=== PATIENT | female | born 2000 | race Caucasian/White ===

== ENCOUNTER 2020-05-05 12:37 | Emergency (ER) | payer OTHER, SELFPAY ==
[2020-05-05 12:56] VITALS: BP 108/72; PULSE 106; RESP 14; TEMP 37.1; O2SAT 99
--- NOTE | 2020-05-05 13:02 | ED.URI ---
HPI - URI/Sore Throat General Chief Complaint: Upper Respiratory Infection Stated Complaint: sore throat swollen neck Time Seen by Provider: 05/05/20 13:02 Source: patient and RN notes reviewed Mode of arrival: ambulatory Limitations: no limitations History of Present Illness HPI Narrative: 19-year-old female who presents to [facility] with 3-day history of sore throat, and right ear discomfort. Patient states that she has some nasal drainage and stuffiness, denies any known fever, chills or sweats. Patient is not having any cough or any shortness of breath, SAO2 99% on room air. Patient was treated for ear infection previously on April 09, 2020. MD elicited complaint: sore throat and other (ear pain) Pertinent past history: other (ear infection) Onset (ago): day(s) (3) Associated symptoms: rhinorrhea, nasal congestion, sore throat, ear pain (Right) and other Treatments prior to arrival: antibiotics (2 doses of old antibiotic) Related Data Home Medications Medication Instructions Recorded Confirmed No Home Medications 05/05/20 05/05/20 Allergies Allergy/AdvReac Type Severity Reaction Status Date / Time No Known Allergies Allergy Verified 05/05/20 13:07 Review of Systems Review of Systems: Narrative: CONSTITUTIONAL: Denies fever, chills, or sweats. EYES: Denies visual changes, redness, or discharge. ENT: Positive rhinorrhea, congestion, sore throat, right otalgia. CARDIOVASCULAR: Denies chest pain, palpitations, or edema. RESPIRATORY: Denies cough or dyspnea. GASTROINTESTINAL: Denies abdominal pain, nausea, vomiting, or diarrhea. GENITOURINARY: Denies dysuria or hematuria. SKIN: Denies rash or itching. MUSCULOSKELETAL: Denies back pain, joint pain, or myalgia. NEUROLOGIC: Denies headache, numbness, or weakness. PSYCHIATRIC: Denies anxiety or depression. All systems reviewed & are unremarkable except as noted in HPI and below PMFSH Past Medical History Medical History (Updated 05/05/20 @ 13:32 by Jeanine Gautam NP) Acute streptococcal pharyngitis Ear infection Surgical History Surgical History (Updated 05/05/20 @ 13:33 by Jeanine Gautam NP) History of tonsillectomy and adenoidectomy Family History Family History (Updated 05/05/20 @ 18:14 by Jeanine Gautam NP) Other No significant family history Social History Social History (Updated 05/05/20 @ 13:33 by Jeanine Gautma NP) Smoking status: Current every day smoker Alcohol intake: current Substance use: never Living arrangements: with family Gender identity (if verbalized by the patient): Female Comments At time of signature, agree with nursing past medical, surgical, social and family history. There is no relevant family history pertinent to the presenting complaint Exam Narrative: Exam Narrative: GENERAL: Well-appearing, well-nourished, and in no acute distress. HEAD: Normocephalic, atraumatic. EYES: PERRLA and EOMI. ENT: Nares red with clear rhinorrhea no epistaxis. Mucous membranes moist.TM's normal with normal light reflex, right ear has some scarring noted on ear drum, no drainage noted, throat red with no lesions or exudates post nasal drainage noted, previous T&A. NECK: Supple.no lymphadenopathy CHEST: Clear to auscultation. No respiratory distress.SAO2 99% on room air. HEART: Regular rate and rhythm. No murmur heard. Normal peripheral pulses. ABDOMEN: Soft, nontender, nondistended, normal active bowel sounds. EXTREMITIES: Normal range of motion. No edema. SKIN: Warm, dry, no rash. NEURO: No focal deficits. Alert and oriented x3. Course Vital Signs Vital signs: Vital Signs Temperature 37.1 C 05/05/20 12:56 Pulse Rate 106 H 05/05/20 12:56 Respiratory Rate 14 05/05/20 12:56 Blood Pressure 108/72 05/05/20 12:56 Pulse Oximetry 99 05/05/20 12:56 Temperature 37.1 C 05/05/20 12:56 Pulse Rate 106 H 05/05/20 12:56 Respiratory Rate 14 05/05/20 12:56 Blood Pressure 108/72
== END 2020-05-05 13:29 | disposition home or self-care (01) ==
PROVIDERS: Emergency Provider Registered Nurse; PCP Physician Assistant
DX: J06.9 Acute upper respiratory infection, unspecified (principal); F17.200 Nicotine dependence, unspecified, uncomplicated
CPT/HCPCS: 87081; 87880; 99213; G0463

== ENCOUNTER 2024-04-25 11:13 | Outpatient (CLI) | payer OTHER, SELFPAY ==
--- NOTE | ~2024-04-25 | NM_ITS ---
EXAMINATION: NM hepatobiliary wo pharm DATE: 04/25/2024 15:06 INDICATION: Right upper quadrant abdominal pain. Weight loss. COMPARISON: None. TECHNIQUE: 5.087 mCi Tc-99m mebrofenin (Choletec) was administered intravenously. Scintigraphic imag es of the abdomen were obtained for one hour. Delayed images were obtained at 4 hours. FINDINGS: There is normal clearance of radiotracer from the blood pool. There is homogeneous tracer u ptake by the liver. Activity progresses to the bowel. There is no activity in the gallbladder at 4 h ours. IMPRESSION: 1. Lack of activity in the gallbladder, consistent with acute cholecystitis. Reviewed, dictated and finalized at location A. [employer]
[2024-04-30 15:32] LABS: Calprotectin, Stool 10 mcg/g
== END 2024-04-25 11:14 | disposition home or self-care (01) ==
LOC: ANHIMG 11:14
PROVIDERS: PCP Physician Assistant; Visit Provider Nurse Practitioner Family
DX: R19.7 Diarrhea, unspecified (principal); R63.4 Abnormal weight loss
CPT/HCPCS: 78226; 82653; 83993; A9537

== ENCOUNTER 2024-05-16 08:56 | Outpatient (CLI) | payer OTHER, SELFPAY ==
--- NOTE | ~2024-05-16 | US_ITS ---
EXAMINATION: US abdomen limited DATE: 05/16/2024 09:51 INDICATION: Right upper quadrant abdominal pain. Nausea. Vomiting. TECHNIQUE: Multiple grayscale and Doppler ultrasound images of the abdomen were obtained. COMPARISON: None FINDINGS: The visualized portions of the head, body, and tail of the pancreas are normal. The liver i s normal without focal lesion. There is normal flow in main portal vein. The gallbladder is normal in size and contains gallstones. No gallbladder wall thickening or sonographic Stevenson sign. The common duct is normal and measures 4 mm. IMPRESSION: 1. Cholelithiasis. No evidence of acute cholecystitis. Reviewed, dictated and finalized at location A. ICAL TECHNOLOGIST
--- OUTSIDE RECORDS SUMMARY | 2024-05-16 09:26 | XMS_ITS | Data Portability ---
Author Organization KATY Sanchez GARCIA Address [address] [facility] [place] [address] Care Team Providers Care Bottom Sander Name Role Phone JARROD BUNN Primary Care Provider [phone] JAKE HENRIQUEZ Assistant Professor Of Anthropology Unavailable Assessment No assessment recorded. Plan of Treatment Reminders Order Date Submit Date Provider Last Modified By Organization Details Last Modified Time Details Appointments None recorded. Lab CBC 2023 [facility], [address] [place] [address], [facility] [address], [place], [address], 4 06:18:36 CMP, serum or plasma 2023 [facility], [address] [place] [address], [facility] [address], [place], [address], 4 06:18:34 lipid panel, serum 2023 [facility], [address] [place] [address], [address], [place], [address], 4 06:18:32 TSH + free T4, serum 2023 [facility], [address] [place] [address], [address], [place], [address], 4 13:13:58 HbA1c (hemoglobi n A1c), blood 2023 [facility] In-Office Order, Internal Use Only DO Not Attach Compendium DO Not Attach Compendium, Do Not Delete/merge, [id number] 4 11:54:06 Referral gastroente rologist referral 2020 [email or web address] Not available 13:49:57 gastroente rologist referral 2023 024 [facility], [address], [address], [place], [address], 18:17:32 Procedures None recorded. Surgeries None recorded. Imaging None recorded. Medication Orders tramadol 50 mg tablet 2019 020 [facility], [address] [place] [address], [address], 4 14:44:48 amoxicilli n 875 mg tablet 2019 020 [facility], [address] [place] [address], [address], 4 14:45:09 Lomotil 2.5 mg-0.025 mg tablet 2023 024 [facility], [address] [place], [address], 4 11:34:23 escitalopr am 10 mg tablet 2023 024 [facility], [address] [place], [address], 4 11:34:19 Patient TargetsNo targets recorded. Patient Instructions Encounter Date Encounter Id Patient Instructions Last Modified By Organization Details Last Modified Time 03/18/2021 [id number] body mass index: care instructions [email or web address] Not available 03/18/2021 16:07:08 learning about healthy weight jnanney Not available 03/18/2021 16:07:07 10/27/2023 [id number] A healthy lifestyle: care instructions [email or web address] Not available 10/27/2023 15:00:25 03/12/2024 [id number] A healthy lifestyle: care instructions [email or web address] Not available 03/12/2024 11:37:31 Reason for Referral Cosmetician Referral for Cholelithiasis without obstruction Referring Physician: Jarrod Bunn [facility], Encounter Date: 03/18/2021 Cosmetician Referral for Chronic diarrhea Referring Physician: Jarrod Bunn [facility], Encounter Date: 03/12/2024 Results Created Date Observation Date Name Description Value Unit Range Abnormal Flag Note LastModifiedBy Organization Detail LastModifiedTime 03/12/2003/13/2024 LIPID PANEL cholesterol, total 158 mg/dL 100-19 9 Not Available [address], [address], 03/13/2024 06:18:32 03/12/2003/13/2024 LIPID PANEL triglyceride s 95 mg/dL 0-149 Not Available [address], [address], 03/13/2024 06:18:32 03/12/2003/13/2024 LIPID PANEL HDL cholesterol 33 mg/dL 40-999 below low normal Not Available [address], [address], 03/13/2024 06:18:32 03/12/2003/13/2024 LIPID PANEL VLDL cholesterol sri 19 mg/dL 5-40 Not Available [address], [address], 03/13/2024 06:18:32 03/12/2003/13/2024 LIPID PANEL LDL chol calc ([facility]) 119 mg/dL 0-99 above high normal Not Available [address], [address], 03/13/2024 06:18:32 03/12/202024 COMP. METAB OLIC PANEL (14) glucose 76 mg/dL 70-99 Not Available [facility] & [address], [address], 03/13/2024 06:18:34 03/12/20 24 03/13/2024 COMP. METAB OLIC PANEL (14) BUN 10 mg/dL 6-20 Not Available [facility] & [address], [address], 03/13/2024 06:18:34 03/12/20 24 03/13/2024 COMP. METAB OLIC PANEL (14) creatinine 0.81 mg/dL 0.76-1 .27 Not Available [address], [address], 03/13/2024 06:18:34 03/12/20 24 03/13/2024 COMP. METAB OLIC PANEL (14) eGFR 103 >=60 Units for eGFR value s are mL/mi n/1.7 3 The eGFR Calcu latio n has not been valid ated for patie nts under the age of 18. If test resul ts are displ ayed for a patie nt under the age of 18, disre wm that value . Not Available [address], [address], 03/13/2024 06:18:34 03/12/20 24 03/13/2024 COMP. METAB OLIC PANEL (14) BUN/creatini ne ratio 12 9-23 Not Available [address], [address], 03/13/2024 06:18:34 03/12/20 24 03/13/2024 COMP. METAB OLIC PANEL (14) sodium 141 mmol/ L 134-14 4 Not Available [address], [address], 03/13/2024 06:18:34 03/12/20 24 03/13/2024 COMP. METAB OLIC PANEL (14) potassium 3.9 mmol/ L 3.5-5. 2 Not Available [address], [address], 03/13/2024 06:18:34 03/12/20 24 03/13/2024 COMP. METAB OLIC PANEL (14) chloride 106 mmol/ L 96-106 Not Available [address], [address], 03/13/2024 06:18:34 03/12/20 24 03/13/2024 COMP. METAB OLIC PANEL (14) carbon dioxide, total 24 mmol/ L 20-29 Not Available [address], [address], 03/13/2024 06:18:34 03/12/20 24 03/13/2024 COMP. METAB OLIC PANEL (14) calcium 9.5 mg/dL 8.7-10 .2 Not Available [address], [address], 03/13/2024 06:18:34 03/12/20 24 03/13/2024 COMP. METAB OLIC PANEL (14) protein, total 7.5 g/dL 6.0-8. 5 Not Available [address], [address], 03/13/2024 06:18:34 03/12/20 24 03/13/2024 COMP. METAB OLIC PANEL (14) albumin 4.5 g/dL 4.0-5. 0 Not Available [address], [address], 03/13/2024 06:18:34 03/12/20 24 03/13/2024 COMP. METAB OLIC PANEL (14) globulin, total 3.0 g/dL 1.5-4. 5 Not Available [address], [address], 03/13/2024 06:18:34 03/12/20 24 03/13/2024 COMP. METAB OLIC PANEL (14) A/G ratio 1.0 1.2-2. 2 below low normal Not Available [address], [address], 03/13/2024 06:18:34 03/12/20 24 03/13/2024 COMP. METAB OLIC PANEL (14) bilirubin, total 0.6 mg/dL 0.0-1. 2 Not Available [address], [address], 03/13/2024 06:18:34 03/12/20 24 03/13/2024 COMP. METAB OLIC PANEL (14) alkaline phosphatase 53 IU/L 44-121 Not Available [address], [address], 03/13/2024 06:18:34 03/12/20 24 03/13/2024 COMP. METAB OLIC PANEL (14) AST (SGOT) 28 IU/L 0-40 Not Available [address], [address], 03/13/2024 06:18:34 03/12/20 24 03/13/2024 COMP. METAB OLIC PANEL (14) ALT (SGPT) 33 IU/L 0-32 above high normal Not Available [address], [facility], 03/13/2024 06:18:34 03/12/20 24 03/13/2024 CARDI OVASC ULAR REPOR T interpretati on Note Suppl cal rojas is avail able. Not Available [address], [address], 03/13/2024 06:18:35 03/12/2003/13/2024 CORDELL Moody pdf . Not Available [address], [address], 03/13/2024 06:18:35 03/12/2003/12/2024 CBC, PLATE LET, NO DIFFE RENTI AL WBC 8.0 x10e3 /uL 3.4-10 .8 Eff ectiv e Decem kash 2023 [place] [address] 5 WBC will be made* * non-o rdera ble as a stand -kelsie e order code. Not Available [address], [address], 03/13/2024 06:18:35 03/12/20 24 03/12/2024 CBC, PLATE LET, NO DIFFE RENTI AL RBC 4.35 x10e6 /uL 3.77-5 .28 Not Available [address], [address], 03/13/2024 06:18:35 03/12/20 24 03/12/2024 CBC, PLATE LET, NO DIFFE RENTI AL hemoglobin 13.2 g/dL 11.1-1 5.9 Not Available [address], [address], 03/13/2024 06:18:35 03/12/20 24 03/12/2024 CBC, PLATE LET, NO DIFFE RENTI AL hematocrit 40.0 % 34.0-4 6.6 Not Available [address], [address], 03/13/2024 06:18:35 03/12/20 24 03/12/2024 CBC, PLATE LET, NO DIFFE RENTI AL MCV 92 fL 79-97 Not Available [address], [address], 03/13/2024 06:18:35 03/12/2003/12/2024 CBC, PLATE LET, NO DIFFE RENTI AL MCH 30.3 pg 26.6-3 3.0 Not Available [address], [address], 03/13/2024 06:18:35 03/12/2003/12/2024 CBC, PLATE LET, NO DIFFE RENTI AL MCHC 33.0 g/dL 31.5-3 5.7 Not Available [address], [address], 03/13/2024 06:18:35 03/12/2003/12/2024 CBC, PLATE LET, NO DIFFE RENTI AL RDW 11.2 % 11.5-1 4.5 below low normal Not Available [address], [address], 03/13/2024 06:18:35 03/12/2003/12/2024 CBC, PLATE LET, NO DIFFE RENTI AL platelets 347 x10e3 /uL 150-45 0 Mean Plate let Volum e 9.9 fL 8.9-1 2.7 N Not Available [address], [address], 03/13/2024 06:18:35 03/12/2003/12/2024 CBC, PLATE LET, NO DIFFE RENTI AL NRBC 0 % 0-0 Not Available [address], [address], 03/13/2024 06:18:35 03/12/2003/13/2024 TSH+F REE T4 TSH 0.789 uIU/m L 0.450- 4.500 Not Available [facility] ([facility]) [address] [facility], [place], [address], 03/13/2024 13:13:57 03/12/2003/13/2024 TSH+F REE T4 T4,free(dire ct) 1.38 NG/dL 0.82-1 .77 Not Available [facility] ([facility]) [address] [facility], [place], [address], 03/13/2024 13:13:57 03/12/2003/12/2024 HbA1c (hemo globi n A1c), blood HbA1c 5.1 Not Available In-Office Order Internal Use Only DO Not Attach Compendium DO Not Attach Compendium, Do Not Delete/merge, [id number] 03/12/2024 11:37:51 08/15/19 20 08/14/2019 XR, cervi sri spine , 4 or 5 view No observ ation record ed. [facility] Not Available 2019 14:09:38 08/15/19 20 08/14/2019 XR, shoul carole No observ ation record ed. [facility] [address], [place], [address], 08/17/2019 14:09:38 07/26/19 22 07/24/2021 XR, thora colum bar spine No observ ation record ed. [facility] [address], [place], [address], 07/27/2021 09:18:41 08/11/19 22 08/09/2021 XR, chest No observ ation record ed. [facility] [address], [place], [address], 08/10/2021 13:41:52 08/11/19 22 08/09/2021 XR, pelvi s, 1 or 2 view No observ [facility]ion [facility] [address], [place], [address], 08/10/2021 13:39:04 08/11/19 22 08/09/2021 CT, head, w/o contr ast No observ ation record ed. [facility] ([facility] [address], [place], [address], 08/10/2021 13:38:35 08/11/19 22 08/09/2021 CT, cervi sri spine , w/o contr ast No observ ation record ed. [facility] ([facility] [address], [place], [address], 08/10/2021 13:38:18 08/25/19 22 08/21/2021 CT, lumba r spine , w/o contr ast No observ ation record ed. jnanney Not Available 2021 10:36:29 04/25/19 25 04/25/2024 NM, hepat obili trae scan No observ [facility] [address], [place], [address], 04/25/2024 16:38:47 Result Notes None recorded. Problems Name Problem SNOMED Code Status Onset Date Resolution Date Notes Provider Name and Address Organization Details Recorded Time 54240302 Completed 201706/12/2018 Oralia Sprague null, [place] - [facility] 9 17:19:38 Knee pain Active Kathleen Durham [place] [facility] 15:14:21 Foot eczema 240957179 Active Kathleen Durham [place] [facility] 15:14:21 Spasm of back muscles 253515371 Active BLANCA Miguel, [place] - [facility] 15:14:21 Problem Notes None recorded. Procedures Surgical History Date Name Laterality Status Provider Name and Address Organization Details Recorded Time tonsilectom y/adenoids completed BLANCA Miguel - [facility] 03/18/2021 15:17:19 Imaging Results Imaging Date Name Status LastModified by Organization Details LastModified Time 08/14/2019 XR, cervical spine, 4 or 5 view completed [facility] Information not available 08/17/2019 14:09:38 08/14/2019 XR, shoulder completed [facility] [address], [place], [address], 08/17/2019 14:09:38 07/24/2021 XR, thoracolumbar spine completed [facility] ([facility] [address], [place], [address], 07/27/2021 09:18:41 08/09/2021 XR, chest completed [facility] ([facility] [address], [place], [address], 08/10/2021 13:41:52 08/09/2021 XR, pelvis, 1 or 2 view completed [facility] ([facility] [address], [place], [address], 08/10/2021 13:39:04 08/09/2021 CT, head, w/o contrast completed [facility] ([facility] [address], [place], [address], 08/10/2021 13:38:35 08/09/2021 CT, cervical spine, w/o contrast completed [facility] [address], [place], [address], 08/10/2021 13:38:18 08/21/2021 CT, lumbar spine, w/o contrast completed [facility] Information not available 08/24/2021 10:36:29 04/25/2024 NM, hepatobiliary scan completed [place] [address], [place], [address], 04/25/2024 16:38:47 Procedure Notes None recorded. Medical Equipment None Reported. Allergies No known drug allergies Medications Name Sig Start Date Stop Date Status Note LastModified by Organization Details LastModified Time cyclobenzap rine 10 mg tablet TAKE 1 TABLET BY MOUTH THREE TIMES DAILY 10/26 completed Not Available Not Available Not Available amoxicillin 500 mg capsule TAKE 1 CAPSULE BY MOUTH EVERY 8 HOURS FOR 7 DAYS 03/12 completed Not Available Not Available Not Available hydrocodone 5 mg-acetamin ophen 325 mg tablet TAKE 2 TABLETS BY MOUTH EVERY 6 HOURS NEEDED FOR PAIN 10/26 completed Not Available Not Available Not Available prednisone 20 mg tablet 04/09 completed Not Available Not Available Not Available metronidazo le 250 mg tablet 03/18 completed Not Available Not Available Not Available Zithromax Z-Neto 250 mg tablet TAKE 2 TABLETS (500 MG) BY ORAL ROUTE ONCE DAILY FOR 1 DAY THEN 1 TABLET (250 MG) BY ORAL ROUTE ONCE DAILY FOR 4 DAYS 07/11 completed Not Available Not Available Not Available diphenoxyla te-atropine 2.5 mg-0.025 mg tablet Take 2 tablets 4 times a day by oral route for 3 days. active Not Available Not Available No t Available metronidazo le 500 mg tablet 04/09 completed Not Available Not Available Not Available Space Chamber USE DIRECTED 10/26 completed Not Available Not Available Not Available tramadol 50 mg tablet TAKE 1 TABLET BY MOUTH EVERY 6 HOURS NEEDED FOR PAIN 10/26 completed Not Available Not Available Not Available Depo-Medrol 80 mg/mL suspension for injection Take 1 mL by injection route. 2014 active Not Available Not Available Not Avai lable pantoprazol e 20 mg tablet,gianna yed release active Not Available Not Available Not Available Imitrex 50 mg tablet Take 1 tablet twice a day by oral route as directed for 12 days. 09/14 completed Not Available Not Available Not Available Vitamin tablet Take 1 tablet every day by oral route. 04/09 completed Not Available Not Available Not Available Zofran 4 mg tablet TAKE 2 TABLETS BY MOUTH TWICE DAILY 01/31 completed Not Available Not Available Not Available amoxicillin 875 mg tablet TAKE 1 TABLET BY MOUTH TWICE DAILY FOR 7 DAYS 10/26 completed Not Available Not Available Not Available dicyclomine 20 mg tablet active Not Available Not Available Not Available cephalexin 500 mg capsule Take 1 capsule 3 times a day by oral route for 10 days. 04/09 completed Not Available Not Available Not Available diclofenac sodium 75 mg tablet,gianna yed release Take 1 tablet twice a day by oral route for 30 days. active Not Available Not Available No t Available methylpredn isolone 4 mg tablets in a dose pack TAKE BY MOUTH DIRECTED ON INSIDE OF PACKAGE 10/26 completed Not Available Not Available Not Available albuterol sulfate HFA 90 mcg/actuati on aerosol inhaler INHALE 2 PUFFS BY MOUTH EVERY 6 HOURS NEEDED WHEEZING OR SHORTNESS OF BREATH active Not Available Not Available No t Available ketorolac 60 mg/2 mL intramuscul ar solution Inject 2 mL by intramusc ular route. 02/02 completed Not Available Not Available Not Available naproxen 500 mg tablet TAKE 1 TABLET BY MOUTH EVERY 12 HOURS FOR 5 DAYS NEEDED FOR PAIN 10/26 completed Not Available Not Available Not Available metoclopram silvia 10 mg tablet 04/09 completed Not Available Not Available Not Available escitalopra m 10 mg tablet Take 1 tablet every day by oral route for 90 days. active Not Available Not Available No t Available nitrofurant oin monohydrate /macrocryst als 100 mg capsule Take 1 capsule every 12 hours by oral route for 5 days. 10/26 completed Not Available Not Available Not Available RhoGAM Ultra-Filte red PLUS 1,500 unit (300 mcg) intramuscul ar syringe Inject 1 syringe by intramusc ular route. 04/09 completed Not Available Not Available Not Available Tunica-Linyah 0.25 mg-35 mcg tablet Take 1 tablet every day by oral route. 04/09 completed Not Available Not Available Not Available Vitamins Plus Low Iron 27 mg iron-1 mg tablet 04/09 completed Not Available Not Available Not Available Flonase Allergy Relief 50 mcg/actuati on nasal spray,suspe nsion 1 spray per nostril daily 04/09 completed Not Available Not Available Not Available Rhinocort Allergy 32 mcg/actuati on nasal spray USE 2 SPRAY(S) IN EACH NOSTRIL ONCE DAILY DIRECTED FOR 30 DAYS 04/09 completed Not Available Not Available Not Available Vitals Date Recorded Body temperature Provider Name a nd Address Organization Details Last Updated DateTime 03/18/2021 97.1 [degF] Kathleen Durham MA [facility] 15:18:00 Date Recorded Oxygen saturation Oxygen saturation in Arterial blood by Pulse oximetry Provider Name and Address Organization Details Last Updated DateTime 03/18/2021 99 % 99 % Kathleen Durham MA [facility] 03/18/2021 15:18:08 Date Recorded Heart rate Provider Name an d Address Organization Details Last Updated DateTime 03/18/2021 98 /min Kathleen Durham MA [facility] 03/18/20 15:18:11 Date Recorded Body weight Provider Name an d Address Organization Details Last Updated DateTime 03/18/2021 197625.79 g Kathleen Durham MA [facility] 15:20:56 Date Recorded Body height Body mass index (BMI) Provider Name and Address Organization Details Last Updated DateTime 03/18/2021 167.64 cm 42.4 kg/m2 Kathleen Durham MA [facility] 03/18/2021 15:21:00 Date Recorded Body height Provider Name an d Address Organization Details Last Updated DateTime 10/27/2023 167.64 cm Kayleigh Montana MA [facility] 10/27/19 14:46:48 Date Recorded Body mass index (BMI) Body weight Provider Name and Address Organization Details Last Updated DateTime 10/27/2023 38.7 kg/m2 250108.17 g Kayleigh Montana MA [facility] 10/27/2023 14:46:55 Date Recorded Heart rate Provider Name an d Address Organization Details Last Updated DateTime 10/27/2023 68 /min Kayleigh Montana MA [facility] 10/27/19 14:48:08 Date Recorded Oxygen saturation Oxygen saturation in Arterial blood by Pulse oximetry Provider Name and Address Organization Details Last Updated DateTime 10/27/2023 98 % 98 % Kayleigh Montana MA [facility] 10/27/2023 14:48:10 Date Recorded Body height Provider Name an d Address Organization Details Last Updated DateTime 03/12/2024 167.64 cm Kathleen Durham MA [facility] 03/12/20 11:14:27 Date Recorded Body mass index (BMI) Body weight Provider Name and Address Organization Details Last Updated DateTime 03/12/2024 37.3 kg/m2 519741.84 g Kathleen Durham MA [facility] 03/12/2024 11:15:45 Date Recorded Oxygen saturation Oxygen saturation in Arterial blood by Pulse oximetry Provider Name and Address Organization Details Last Updated DateTime 03/12/2024 97 % 97 % Kathleen Durham MA [facility] 03/12/2024 11:20:36 Date Recorded Heart rate Provider Name an d Address Organization Details Last Updated DateTime 03/12/2024 65 /min Kathleen Durham MA [facility] 03/12/20 11:20:39 Date Recorded Systolic blood pressure Diastolic blood pressure Provider Name and Address Organization Details Last Updated DateTime 03/18/2021 120 mm[Hg] 72 mm[Hg] Kathleen Durham MA [facility] 03/18/2021 15:19:54 Date Recorded Systolic blood pressure Diastolic blood pressure Provider Name and Address Organization Details Last Updated DateTime 10/27/2023 120 mm[Hg] 80 mm[Hg] Kayleigh Montana MA [facility] 10/27/2023 14:48:12 Date Recorded Systolic blood pressure Diastolic blood pressure Provider Name and Address Organization Details Last Updated DateTime 03/12/2024 126 mm[Hg] 84 mm[Hg] Kathleen Durham MA [facility] 03/12/2024 11:20:33 Social History Question Answer Notes LastModified by Organizat ion Details LastModified Time Tobacco Smoking Status Former Smoker Kayleigh Montana MA [facility] 10/27/2023 14:46:11 What Is Your Level Of Alcohol Consumption? None Information not available 04/09/2020 What Is Your Level Of Caffeine Consumption? Moderate Information not available 04/09/2020 In The 14 Days Before Symptom Onset, Have You Had Close Contact With A Laboratory-confir med COVID-19 While That Case Was Ill? No Information not available 03/18/2021 In The 14 Days Before Symptom Onset, Have You Had Close Contact With A Person Who Is Under Investigation For COVID-19 While That Person Was Ill? No Information not available 03/18/2021 Have You Been To An Area Known To Be High Risk For COVID-19? No Information not available 03/18/2021 What Type Of Diet Are You Following? REGULAR Information not available 04/09/2020 Which Illicit Or Recreational Drugs Have You Used? None Information not available 04/09/2020 Do You Or Have You Ever Used E-cigarettes Or Vape? Current User Of Electronic Cigarettes [email or web address] Information not available 10/27/2023 What Is Your Occupation? Unemployed Information not available 04/09/2020 Marital Status Single [facility] Informati on not available 04/09/2020 What Was The Date Of Your Most Recent Tobacco Screening? 03/12/2024 Information not available 03/12/2024 What Is Your Relationship Status? Single Information not available 03/18/2021 Do You Have Smoke And Carbon Monoxide Detectors In Your Home? Yes Information not available 03/18/2021 Are You Passively Exposed To Smoke? Yes Information no t available 03/18/2021 Do You Or Have You Ever Used Smokeless Tobacco? Never Used Smokeless Tobacco Information not available 04/09/2020 How Much Tobacco Do You Smoke? No Information not available 03/12/2024 General Stress Level High [facility] Information not available 04/09/2020 Do You Feel Stressed (tense, Restless, Nervous, Or Anxious, Or Unable To Sleep At Night)? [id number] Information not available 03/18/2021 Do You Use Any Illicit Or Recreational Drugs? No Information not available 03/18/2021 Has Tobacco Cessation Counseling Been Provided? Yes Information not available 03/18/2021 On What Date Was Tobacco Cessation Counseling Provided? 03/12/2024 Information not available 03/12/2024 Do You Or Have You Ever Used Any Other Forms Of Tobacco Or Nicotine? No Information not available 03/18/2021 Sex: Unknown Functional Status None recorded. Mental Status None recorded. Family History Nothing Reported. Medical History Condition Response Coronary Artery Disease N Other N High Blood Pressure N Atrial Fibrillation N Kidney or Bladder Problems N Thyroid Problems N GI Problems N Depression N COPD N Blood Clots N Skin Problems N Anemia N Heart Attack (SC) N Anxiety Disorder N Diabetes N Muscle, Joint, or Bone Problems N Seizures/Epilepsy N Acid Reflux (GERD) N Cancer N Stroke N Asthma N Allergies N High Cholesterol N Hepatitis N Liver Disease N Headaches N Heart Failure N Osteoporosis N Gynecological History Statement/Question Response Age at Menarche 11 Current Control Method None Date of LMP 03/10/2024 LMP Definite On BCP's at Conception? N Obstetrics History GPAL:G 1 P 1 0 0 1 Type Value Multiple Births 0 Full Term 1 Induced 0 Spontaneous 0 Premature 0 Living 1 Ectopics 0 Total 1 Immunizations Vaccine Type Date Status Note Provider Nam e and Address Organization Details Recorded Time Meningococcal MCV4O 5 completed Not Available [facility] 05/05/2019 02:43:03 Past Encounters Encounter ID Performer Location Encounter Start Date Encounter Closed Date Diagnosis/Indication Diagnosis SNOMED-CT Code Diagnosis ICD10 Code Diagnosis Note [id number] [facility] [address] [place] [address] 08/26/2014 16:34:21 08/26/2014 17:09:29 Knee pain [id number] SUJATA Rivera [facility] [address] [place] [address] 12/20/2014 16:45:42 12/24/2014 09:06:05 Well child [id number] Jarrod Bunn PA-C [facility] [address] [place] [address] 02/26/2015 15:11:22 02/26/2015 15:39:39 Foot eczema [id number] L30.9 [id number] Jarrod Bunn PA-C [facility] [address] [place] [address] 06/27/2015 16:20:31 06/30/2015 09:15:18 Spasm of back muscles 068392355 M62.202 [id number] SUJATA Rivera [address] [place] [address] 02/03/2016 18:55:17 02/04/2016 09:27:11 Well child [id number] Z00.260 [id number] ERIN Pizano [facility] [address] [place] [address] 04/27/2017 15:06:38 04/27/2017 17:06:29 Breasts asymmetrical 605259746 N64.59 Upper resp iratory infection 62229345 J06.9 [id number] Jarrod Bunn PA-C [facility] [address] [place] [address] 07/11/2017 15:49:58 07/12/2017 10:19:40 Acute diarrhea 869695728 R19.7 Migraine without aura 56 101568 G43.694 [id number] ERIN Pizano [facility] [address] [place] [address] 09/14/2017 13:40:36 09/14/2017 14:43:16 Contraception care management 105616540 Z30.9 [id number] ERIN Piazno [facility] [address] [place] [address] 10/12/2017 15:02:42 10/12/2017 16:33:37 test positive 886648592 Z32.01 Normal 8037803 2 Z34.90 [id number] ERIN Pizano [facility] [address] [place] [address] 10/26/2017 14:57:32 10/26/2017 15:37:34 Routine care 958307038 Z34.91 [id number] ERIN Pizano 14 OB [address] [facility] [place] [address] 11/15/2017 16:21:47 11/17/2017 16:13:10 Routine care 749962599 Z34.91 Venereal d isease screening 638867238 Z11.3 Hyperemesi s gravidarum 80132692 O21.0 [id number] ERIN Pizano 14 OB [address] [facility] [place] [address] 12/13/2017 17:06:07 12/14/2017 15:16:58 Normal 77584823 Z34.90 [id number] ERIN Pizano 14 OB [address] [facility] [place] [address] 01/10/2018 17:02:02 01/12/2018 13:12:02 Routine care 649789775 Z34.92 [id number] SUJATA Rivera [address] [place] [address] 01/31/2018 17:09:06 01/31/2018 18:05:17 Atopic dermatitis 29367655 L20.81 Seasonal a llergic rhinitis 067560612 J30.2 [id number] [facility] [address] [facility] [place] [address] 02/10/2018 16:51:33 02/13/2018 14:14:07 Routine care 435010577 Z34.92 [id number] [facility] OB [address] [facility] [place] [address] 02/16/2018 11:29:47 02/17/2018 14:17:44 Normal 46390655 Z34.90 Nausea and vomiting 1693 2000 R11.2 [id number] ERIN Pizano [place] 14 OB [address] [facility] [place] [address] 03/08/2018 16:09:34 03/11/2018 11:38:24 Routine care [id number] Z34.92 RhD negative 427315403 Z 01.83 [id number] Corrine Vazquez MA [facility] [address] [place] [address] 05/04/2018 16:56:37 05/04/2018 17:46:52 [id number] SUJATA Rivera [address] [place] [address] 04/27/2019 16:52:42 05/01/2019 12:40:14 Dysuria 26360482 R30.9 Otalgia 35521150 H92.02 Headache 99366036 R51 Acute urin trae tract infection 415475570 N30.00 [id number] SUJATA Rivera [facility] [address] [place] [address] 08/17/2019 14:04:14 08/20/2019 09:59:22 Myofascial pain syndrome of neck 406904688 M54.2 [id number] Jarrod Bunn PA-C [facility] [address] [place] [address] 04/09/2020 15:20:41 04/09/2020 16:53:06 Acute bilateral otitis media 465427960 H65.03 [id number] Jarrod Bunn PA-C [facility] [address] [place] [address] 03/18/2021 15:08:26 03/18/2021 16:14:44 Cholelithiasis without obstruction 99700761 K80.20 Body mass index 30+ - obesity 416277459 Z68.41 [id number] Jarrod Bunn PA-C [facility] [address] [place] [address] 10/27/2023 14:38:09 10/28/2023 11:52:54 Sprain of right ankle 1261866566 [id number] S93.411A Overweight 099406408 E66 .3 [id number] Kathleen Durham MA [facility] [address] [place] [address] 03/12/2024 11:08:58 03/20/2024 12:13:41 Mixed anxiety and depressive disorder 303686643 F41.8 Chronic diarrhea 5952961 09 K52.9 Irritable bowel syndrome with diarrhea 104753595 K58.0 Overweight 677294346 E66 .3 Health Concerns Section Related Observation LastModified by Organization Detai ls LastModified Time None Recorded Concern Status LastModified by Organization Details LastModified Time None Recorded Advance Directives Directive None Recorded Payers Encounter Date Sequence Insurance Name Policy Number Policy Dudley Covered Member ID Dudley Member ID Guarantor Name 08/17/2019 1 [facility] PRIOR TO 10/16/2020 (MEDICAID REPLACEMENT - HMO) Connie Cathorall [id number] Connie Cathorall 04/09/2020 1 [facility] PRIOR TO 10/16/2020 (MEDICAID REPLACEMENT - HMO) Connie Cathorall [id number] Connie Cathorall 03/18/2021 1 [facility] ON OR AFTER 10/16/20 (MEDICAID REPLACEMENT - HMO) Connie Cathorall [id number] Connie Cathorall 10/27/2023 1 [facility] - DOS ON OR AFTER 20 (MEDICAID REPLACEMENT - HMO) Connie Hamilton [id number] Connie Cathorall 03/12/2024 1 [facility] - DOS ON OR AFTER 20 (MEDICAID REPLACEMENT - HMO) Connie Hamilton [id number] Connie Cathorall Notes Date Note Type Note Provider Name and Address Organization Details Recorded Time 08/17/2019 text/html fell and hit her neck on a high chair...went to ER...neck was not broken..muscle relaxers and prednisone Jarrod Bunn PA-C Attn: [address] [place], [address], [facility] 08/17/2019 14:12:52 04/09/2020 text/html says she has an infection in both ears...denies fever...does report sinus issues...has a long history of ear infections Jarrod Bunn PA-C Attn: [address] [place], [address], [facility] 04/09/2020 16:45:16 03/18/2021 text/html 20 y/o F present s for hospital follow up. Pt was seen at [facility]'s ER for upper back, epigastric pain that was found to be the result of gallstones. Pt underwent confirmatory CT scan. Pt was not treated with abx, but was sent home with naproxen for pain and told to f/u with Gen surgeon for possible removal of her gallbladder. Pt states that she has had pain almost daily since - retrosternal, upper back and epigastric pain for about an 1.5 hrs. Jarrod Bunn PA-C Attn: [address] [place], [address], [facility] 03/18/2021 16:12:29 10/27/2023 text/html came back from a float trip...without issue...then sprained her ankle on the steps at home....ER said no break Jarrod Bunn PA-C Attn: [address] , [place], [address], [place] [facility] 10/27/2023 15:02:04 03/12/2024 text/html always diarrhea for a year..yellow..stom ach cramps fatigue...sleeping is only relief...seems rapid transit...OTC no help..emotional changes make condition worse... Kathleen Durham MA null, PA - [facility] 03/12/2024 11:54:45 OBGyn Episode Ob Episode Information Episode Created Date Number of Fetuses Patient Bloodtype Patient rh Status Prepregnancy Weight lbs Domestic Partner Domestic Partner Phone Father Name Burr Machine Operator Status 10/13/19 18 1 A Negative 206 Presley Schrum CLOSED Fetus Data First Name Last Name Admitted to NICU Weight (g) Sex Living Outcome Pediatric Complications Fetus ID Race Codes Race Delivery Type kalyan hamilton false 3572.03 7 F true Full Term [id number] White Vaginal Christ Calculation Initial Christ Date Initial Exam Date Initial Exam Provider Initial Ultrasound Date Last Menstrual Period Date Ultra Sound Weeks Gestation 06/02/2018 [facility]/03[facility]2017 07/22/2017 9 Eighteen To Twenty Week Christ Update Ultra Sound Date Fundal Height At Umbil Quickening Date Ultra Sound Latest Weeks Gestation Final Christ Confirmed By Final Christ Confirmed Date Final Christ Date Ultra Sound Latest Days [facility] 0 [facility] 11/07/2017 019 0 Pre- Flowsheet Flowsheet Date 10/12/2017 Christian Score Blood Edema Fundus Height Fundus Units Glucose Ketones Leukocytes Nitrite Labor Signs Protein Cervic Dilation Cervic Effacement Cervic Station Type Weight in lbs Pre/Post Dialysis Refused Weight 206.488966974528 BP Diastolic BP Location Tested BP Systolic BP Type 80 110 sitting Fetus Heart Rate Present Fetus Movement Comments Flowsheet Date 10/26/2017 Christian Score Blood Edema Fundus Height Fundus Units Glucose Ketones Leukocytes Nitrite Labor Signs Protein Cervic Dilation Cervic Effacement Cervic Station Type Weight in lbs Pre/Post Dialysis Refused Weight 208.79343774455 BP Diastolic BP Location Tested BP Systolic BP Type 78 118 sitting Fetus Heart Rate Present Fetus Movement Comments Pt doing well. Having some s inus issues, advised Zyrtec prn. States she has not had labs or ultrasound done but is going on 11/03. Will follow up after that apt in 3 weeks. Flowsheet Date 11/15/2017 Christian Score Blood Edema Fundus Height Fundus Units Glucose Ketones Leukocytes Nitrite Labor Signs Protein Cervic Dilation Cervic Effacement Cervic Station none Type Weight in lbs Pre/Post Dialysis Refused Weight 207.067971890438 BP Diastolic BP Location Tested BP Systolic BP Type 60 112 sitting Fetus Heart Rate Present Fetus Movement Comments Pt doing well. Feels like sh e may have had an UTI last week but states symptoms (burning on urination) has stopped. Denies odor or discharge. Is having nausea/vomiting in the mornings. Reviewed lab results and ultrasound. A neg and varicella non-immune. Will follow up in 4 weeks, sooner if needed. Urine STD done today. Flowsheet Date 12/13/2017 Christian Score Blood Edema Fundus Height Fundus Units Glucose Ketones Leukocytes Nitrite Labor Signs Protein Cervic Dilation Cervic Effacement Cervic Station none none Type Weight in lbs Pre/Post Dialysis Refused Weight 210.326678947131 BP Diastolic BP Location Tested BP Systolic BP Type 60 110 sitting Fetus Heart Rate Present Fetus Movement Comments Pt doing well. States that n ausea has stopped. Unable to find hearttones due to body habitus, pt states she thinks she is feeling movements. Ultrasound order given to patient. Denies bleeding or discharge. Follow up pending results of ultrasound or in 4 weeks. Flowsheet Date 01/10/2018 Christian Score Blood Edema Fundus Height Fundus Units Glucose Ketones Leukocytes Nitrite Labor Signs Protein Cervic Dilation Cervic Effacement Cervic Station none none Type Weight in lbs Pre/Post Dialysis Refused Weight 207.719208526674 BP Diastolic BP Location Tested BP Systolic BP Type 70 104 Fetus Heart Rate Present A 154 Present Fetus Movement A Yes Comments Doing well. Has ultrasound a nd [facility] next week. No complaints. Will follow up in 4 weeks. Flowsheet Date 01/31/2018 Christian Score Blood Edema Fundus Height Fundus Units Glucose Ketones Leukocytes Nitrite Labor Signs Protein Cervic Dilation Cervic Effacement Cervic Station Type Weight in lbs Pre/Post Dialysis Refused Weight 211.257087192312 BP Diastolic BP Location Tested BP Systolic BP Type 86 126 sitting Fetus Heart Rate Present Fetus Movement Comments Flowsheet Date 02/10/2018 Christian Score Blood Edema Fundus Height Fundus Units Glucose Ketones Leukocytes Nitrite Labor Signs Protein Cervic Dilation Cervic Effacement Cervic Station none 24 cm none Type Weight in lbs Pre/Post Dialysis Refused Weight 216.657953165387 BP Diastolic BP Location Tested BP Systolic BP Type 64 118 sitting Fetus Heart Rate Present A 158 Present Fetus Movement A Yes Comments Doing well, no complaints. I s having a girl. Follow up in 4 weeks, will do one hour glucose then. Flowsheet Date 02/16/2018 Christian Score Blood Edema Fundus Height Fundus Units Glucose Ketones Leukocytes Nitrite Labor Signs Protein Cervic Dilation Cervic Effacement Cervic Station none 24 cm none Type Weight in lbs Pre/Post Dialysis Refused Weight 213.200928411202 BP Diastolic BP Location Tested BP Systolic BP Type 60 114 sitting Fetus Heart Rate Present A 148 Present Fetus Movement A Yes Comments Pt states she has had a coup le of issues with vomiting up mucous that is blood tinged. Denies thick phil blood. States she feels like she has something caught in the back of her throat. Denies sob, trouble swallowing. States she has a sinus infection or a cold. Denies fever. Advised Sudafed. Advised that is she experiences sob, trouble breathing or swallowing to go to ED to be evaluated. Pt verbalized understanding. Pt not in distress and is laughing talking with mother. Flowsheet Date 03/08/2018 Christian Score Blood Edema Fundus Height Fundus Units Glucose Ketones Leukocytes Nitrite Labor Signs Protein Cervic Dilation Cervic Effacement Cervic Station none 28 cm none Type Weight in lbs Pre/Post Dialysis Refused Weight 220.757792880924 BP Diastolic BP Location Tested BP Systolic BP Type 74 116 sitting Fetus Heart Rate Present A 152 Present Fetus Movement A Yes Comments 28 week labs and one hour gl ucose done today. Rhogam shot given. Pt given information on sciatica. Will follow up with MD in 4 weeks. Is thinking about changing to Dr. Bravo. Will let us know. Flowsheet Date 05/04/2018 Christian Score Blood Edema Fundus Height Fundus Units Glucose Ketones Leukocytes Nitrite Labor Signs Protein Cervic Dilation Cervic Effacement Cervic Station Type Weight in lbs Pre/Post Dialysis Refused BP Diastolic BP Location Tested BP Systolic BP Type Fetus Heart Rate Present Fetus Movement Comments Menstrual History Last Menstrual Date Menses Monthly On Bcp Conception Prior Menses Frequency Hcg Plus Date Menarche Onset Age 0407/22/2017 true false 7 14 Genetic Screening And Infection History Question Response Note Patient's Age Will Be 35 Years Or Older At Estim ated Date of Delivery false Thalassemia (Divehi, Welsh, Mediterranean, Or Background): MCV < 80 false Neural Tube Defect (Meningomyelocele, Spina Bifi da, Or Anencephaly) false Congenital Heart Defect false Down Syndrome false Kian-Sachs (eg, Restorationist, Cajun, Pashto-Chemung) f alse Katiana Disease false Sickle Cell Disease Or Trait () false Hemophilia Or Other Blood Disorders false Muscular Dystrophy false Cystic Fibrosis false Margaret's Chorea false Mental Retardation/Autism false If Yes, Was Person Tested For Fragile X? false Other Inherited Genetic Or Chromosomal Disorder false Maternal Metabolic Disorder (eg, Type 1 Diabetes , PKU) false Patient Or Baby's Father Had A Child With Defects Not Listed Above false Recurrent Loss, Or A Stillbirth false Medications (including Suppl ements, Vitamins, Herbs, OTC Drugs), Illicit/Recreational Drugs, Alcohol false If Yes, Agent(s) And Strength/Dosage false Any Other Genetic History false Live With Someone With TB Or Exposed To TB false Patient Or Partner Has History Of Genital Herpes false Rash Or Viral Illness Since Last Menstrual Perio d false History Of STD, Gonorrhea, Chlamydia, HPV, Syphi lis false Other Infection History false Plans and Education First Trimester Discussed Date Discussion Item Discussion Note Discuss ed By 10/12/2017 Anticipated course of care deldredsmit10/12/2017 Alcohol deldredsmit10/12/2017 Intimate partner violence de ldredsmith 10/12/2017 Environmental/work hazards d eldr10/12/2017 Screening for aneuploidy del dredsmit10/12/2017 Nutrition counseling ; special diet; dietary precautions (mercury, listeriosis) deldr10/12/2017 Childbirth classes/hospital facilities deldredsmit 10/12/2017 HIV and other routine tests deldreds10/12/2017 Risk factors identif ied by history deldredsmit10/12/2017 Weight gain counseling deldr edsmith 10/12/2017 [facility] 10/12/2017 Teratogens [facility] 10/12/2017 Use of any medicatio ns (including supplements, vitamins, herbs, or OTC drugs) [facility] 10/12/2017 [facility] 10/12/2017 Sexual activity [facility] 10/12/2017 Tobacco/smoking cess ation counseling (ask, advise, assess, assist, and arrange) [facility] 10/12/2017 Illicit/recreational drugs [facility] 10/12/2017 Dental care [facility] 10/12/2017 Travel [facility] 10/12/2017 [facility] 10/12/2017 Indications for ultrason[facility] 10/12/2017 Avoidance of saunas or hot tubs [facility] 10/12/2017 Toxoplasmosis precautions (cats/raw meat) [facility] Second Trimester Discussed Date Discussion Item Discussion Note Discuss ed By Third Trimester Discussed Date Discussion Item Discussion Note Discuss ed By Delivery Information Delivery Date Delivery Type Labor Anesthesia Weeks Gestation Incision Type Labor Labor Length Hrs Delivered By Post Complications Tubal Sterilization Discharge Date Comments 9 Induce d Regional-Ep idural 41 06/10/2018 Discharge Information Feeding Method Contraceptive Method Maternal HG B and HCT Levels Bottle
== END 2024-05-16 08:57 | disposition home or self-care (01) ==
PROVIDERS: PCP Physician Assistant; Visit Provider Surgery
DX: K80.20 Calculus of gallbladder without cholecystitis without obstruction (principal); R94.8 Abnormal results of function studies of other organs and systems
CPT/HCPCS: 76705

== ENCOUNTER 2024-05-16 14:17 | Outpatient (CLI) | payer OTHER, SELFPAY | END 2024-05-16 14:18 | disposition home or self-care (01) | PROVIDERS: PCP Physician Assistant; Visit Provider Surgery | DX: Z01.812 Encounter for preprocedural laboratory examination (principal); K81.9 Cholecystitis, unspecified; Z53.9 Procedure and treatment not carried out, unspecified reason | CPT/HCPCS: 99199; 36415 ==

== ENCOUNTER 2024-05-18 03:18 | Day surgery (SDC) | payer OTHER, SELFPAY ==
[2024-05-16 12:57] VITALS: BMI 36.3
--- NOTE | 2024-05-16 12:58 | PC.NURSE ---
Report to the Outpatient Waiting Room, entrance under the green pavilion located off [facility], at time _0630_ on date _[id number]_. Planned Procedure Time: _0830_.? Time changes happen often and if your time is changed the preop area will call you the afternoon before. - You and your visitor will be asked to self-screen and do not enter if you have any COVID symptoms. Please call surgeon if you need to reschedule. - A mask is optional within the hospital at this time. Patients may have clear liquids (water, carbonated beverages, clear teas, apple juice) until 3 hours prior to surgery with a maximum of 20 ounces. - No food from midnight until time of surgery and no smoking. This includes no chewing gum, candy or mints. Take only the following medications with a SIP of water on the morning of surgery: ____Escitalopram DO NOT STOP ANY OF YOUR OTHER PRESCRIPTION MEDICATIONS PRIOR TO SURGERY EXCEPT THE FOLLOWING Medications to discontinue per physician ____None____ Please no make-up, nail mozambican, hairspray, perfume, deodorant, or body powder the day of surgery.? No jewelry (including any body piercings) or valuables the day of surgery, leave them at home.? Please take a shower or bath the night before, or the morning of, surgery with an antibacterial soap.? Wear comfortable, loose fitting clothing.? - Jewelry must be removed prior to entering the operating room.? Rings and piercings that are not removed may be cut off. - The hospital will not accept responsibility for valuables.? - Please leave all valuables, including medications, at home the day of surgery. If you are going home after surgery, a licensed tractor driver must drive you home.? - NO public transportation without another adult if you receive anesthesia. - We recommend that an adult stay with you for 24 hours following discharge. - We also recommend that you do not drive, make important decision, drink alcoholic beverages, or take any drugs that were not prescribed by your health care provider for at least 24 hours after your discharge time. Hold all vitamins and supplements for 3 days per anesthesiologist. Follow any additional instructions given to you from your surgeon. Telephone instructions given to _Connie_and asked if any additional questions and then verbalized understanding. Patient advised to call surgeon office or pre surgery nurse liaison [phone] if any additional questions
[2024-05-18] VITALS (10 sets, daily range): BP systolic 104–140; BP diastolic 56–92; PULSE 64–81; RESP 16–20; TEMP 36.1–36.4; O2SAT 96–100
--- OUTSIDE RECORDS SUMMARY | 2024-05-18 03:23 | XMS_ITS | Data Portability ---
Author Organization KATY VIRGILSanchez Thomson Address [address] [place] [address] Care Team Providers Care Showcase Maker Name Role Phone JARROD BUNN Primary Care Provider JAKE HENRIQUEZ Lodging Manager Unavailable Assessment No assessment recorded. Plan of Treatment Reminders Order Date Submit Date Provider Last Modified By Organization Details Last Modified Time Details Appointments None recorded. [facility] [address] [place] [address], [facility] [address], [place], [address], 4 06:18:36 CMP, serum or plasma 2023 [facility], [address] [place] [address], [facility] [address], [place], [address], 4 06:18:34 lipid panel, serum 2023 [facility], [address] [place] [address], [address], [place], [address], 4 06:18:32 TSH + free T4, serum 2023 [facility], [address] [place] [address], [address], [place], [address], 4 13:13:58 HbA1c (hemoglobi n A1c), blood 2023 INTERLOCHEN In-Office Order, Internal Use Only DO Not Attach Compendium DO Not Attach Compendium, Do Not Delete/merge, [id number] 4 11:54:06 Referral gastroente rologist referral 2020 [email or web address] Not available 13:49:57 gastroente rologist referral 2023 024 [facility], [address], [address], [place], [address], 18:17:32 Procedures None recorded. Surgeries None recorded. Imaging None recorded. Medication Orders tramadol 50 mg tablet 2019 020 [facility], [address] [place] [address], [address], 4 14:44:48 amoxicilli n 875 mg tablet 2019 020 [facility], [address] [place] [address], [address], 4 14:45:09 Lomotil 2.5 mg-0.025 mg tablet 2023 024 [facility], [address] [place], [address], 4 11:34:23 escitalopr am 10 mg tablet 2023 024 [facility], [address] [place], [address], 4 11:34:19 Patient TargetsNo targets recorded. Patient Instructions Encounter Date Encounter Id Patient Instructions Last Modified By Organization Details Last Modified Time 03/18/2021 [id number] body mass index: care instructions [email or web address] Not available 03/18/2021 16:07:08 learning about healthy weight [email or web address] Not available 03/18/2021 16:07:07 10/27/2023 [id number] A healthy lifestyle: care instructions [email or web address] Not available 10/27/2023 15:00:25 03/12/2024 [id number] A healthy lifestyle: care instructions [email or web address] Not available 03/12/2024 11:37:31 Reason for Referral Pot Washer Referral for Cholelithiasis without obstruction Referring Physician: Jarrod Bunn [facility], Encounter Date: 03/18/2021 Pot Washer Referral for Chronic diarrhea Referring Physician: Jarrod Bunn [facility], Encounter Date: 03/12/2024 Results Created Date Observation Date Name Description Value Unit Range Abnormal Flag Note LastModifiedBy Organization Detail LastModifiedTime 03/12/2003/13/2024 LIPID PANEL cholesterol, total 158 mg/dL 100-19 9 Not Available [address], [address], 03/13/2024 06:18:32 03/12/2003/13/2024 LIPID PANEL triglyceride s 95 mg/dL 0-149 Not Available [address], [address], 03/13/2024 06:18:32 03/12/2003/13/2024 LIPID PANEL HDL cholesterol 33 mg/dL 40-999 below low normal Not Available [address], [address], 03/13/2024 06:18:32 03/12/2003/13/2024 LIPID PANEL VLDL cholesterol sri 19 mg/dL 5-40 Not Available [address], [address], 03/13/2024 06:18:32 03/12/2003/13/2024 LIPID PANEL LDL chol calc ([facility]) 119 mg/dL 0-99 above high normal Not Available [address], [address], 03/13/2024 06:18:32 03/12/202024 COMP. METAB OLIC PANEL (14) glucose 76 mg/dL 70-99 Not Available [facility] & [address], [address], 03/13/2024 06:18:34 03/12/20 24 03/13/2024 COMP. METAB OLIC PANEL (14) BUN 10 mg/dL 6-20 Not Available [facility] & [address], [address], 03/13/2024 06:18:34 03/12/20 24 03/13/2024 COMP. METAB OLIC PANEL (14) creatinine 0.81 mg/dL 0.76-1 .27 Not Available [address], [address], 03/13/2024 06:18:34 03/12/20 24 03/13/2024 COMP. METAB OLIC PANEL (14) eGFR 103 >=60 Units for eGFR value s are mL/mi n/1.7 3 The eGFR Calcu latio n has not been valid ated for patie nts under the age of 18. If test resul ts are displ ayed for a patie nt under the age of 18, disre wm that value . Not Available [address], [address], 03/13/2024 06:18:34 03/12/20 24 03/13/2024 COMP. METAB OLIC PANEL (14) BUN/creatini ne ratio 12 9-23 Not Available [address], [address], 03/13/2024 06:18:34 03/12/20 24 03/13/2024 COMP. METAB OLIC PANEL (14) sodium 141 mmol/ L 134-14 4 Not Available [address], [address], 03/13/2024 06:18:34 03/12/20 24 03/13/2024 COMP. METAB OLIC PANEL (14) potassium 3.9 mmol/ L 3.5-5. 2 Not Available [address], [address], 03/13/2024 06:18:34 03/12/20 24 03/13/2024 COMP. METAB OLIC PANEL (14) chloride 106 mmol/ L 96-106 Not Available [address], [address], 03/13/2024 06:18:34 03/12/20 24 03/13/2024 COMP. METAB OLIC PANEL (14) carbon dioxide, total 24 mmol/ L 20-29 Not Available [address], [address], 03/13/2024 06:18:34 03/12/20 24 03/13/2024 COMP. METAB OLIC PANEL (14) calcium 9.5 mg/dL 8.7-10 .2 Not Available [address], [address], 03/13/2024 06:18:34 03/12/20 24 03/13/2024 COMP. METAB OLIC PANEL (14) protein, total 7.5 g/dL 6.0-8. 5 Not Available [address], [address], 03/13/2024 06:18:34 03/12/20 24 03/13/2024 COMP. METAB OLIC PANEL (14) albumin 4.5 g/dL 4.0-5. 0 Not Available [address], [address], 03/13/2024 06:18:34 03/12/20 24 03/13/2024 COMP. METAB OLIC PANEL (14) globulin, total 3.0 g/dL 1.5-4. 5 Not Available [address], [address], 03/13/2024 06:18:34 03/12/20 24 03/13/2024 COMP. METAB OLIC PANEL (14) A/G ratio 1.0 1.2-2. 2 below low normal Not Available [address], [address], 03/13/2024 06:18:34 03/12/20 24 03/13/2024 COMP. METAB OLIC PANEL (14) bilirubin, total 0.6 mg/dL 0.0-1. 2 Not Available [address], [address], 03/13/2024 06:18:34 03/12/20 24 03/13/2024 COMP. METAB OLIC PANEL (14) alkaline phosphatase 53 IU/L 44-121 Not Available [address], [address], 03/13/2024 06:18:34 03/12/20 24 03/13/2024 COMP. METAB OLIC PANEL (14) AST (SGOT) 28 IU/L 0-40 Not Available [address], [address], 03/13/2024 06:18:34 03/12/20 24 03/13/2024 COMP. METAB OLIC PANEL (14) ALT (SGPT) 33 IU/L 0-32 above high normal Not Available [address], [facility], 03/13/2024 06:18:34 03/12/20 24 03/13/2024 CARDI OVASC ULAR REPOR T interpretati on Note Suppl cal rojas is avail able. Not Available [address], [address], 03/13/2024 06:18:35 03/12/2003/13/2024 CORDELL Moody pdf . Not Available [address], [address], 03/13/2024 06:18:35 03/12/2003/12/2024 CBC, PLATE LET, NO DIFFE RENTI AL WBC 8.0 x10e3 /uL 3.4-10 .8 Eff ectiv e Decem kash 2023 [place] [address] 5 WBC will be made* * non-o rdera ble as a stand -kelsie e order code. Not Available [address], [address], 03/13/2024 06:18:35 03/12/20 24 03/12/2024 CBC, PLATE LET, NO DIFFE RENTI AL RBC 4.35 x10e6 /uL 3.77-5 .28 Not Available [address], [address], 03/13/2024 06:18:35 03/12/20 24 03/12/2024 CBC, PLATE LET, NO DIFFE RENTI AL hemoglobin 13.2 g/dL 11.1-1 5.9 Not Available [address], [address], 03/13/2024 06:18:35 03/12/20 24 03/12/2024 CBC, PLATE LET, NO DIFFE RENTI AL hematocrit 40.0 % 34.0-4 6.6 Not Available [address], [address], 03/13/2024 06:18:35 03/12/20 24 03/12/2024 CBC, PLATE LET, NO DIFFE RENTI AL MCV 92 fL 79-97 Not Available [address], [address], 03/13/2024 06:18:35 03/12/2003/12/2024 CBC, PLATE LET, NO DIFFE RENTI AL MCH 30.3 pg 26.6-3 3.0 Not Available [address], [address], 03/13/2024 06:18:35 03/12/2003/12/2024 CBC, PLATE LET, NO DIFFE RENTI AL MCHC 33.0 g/dL 31.5-3 5.7 Not Available [address], [address], 03/13/2024 06:18:35 03/12/2003/12/2024 CBC, PLATE LET, NO DIFFE RENTI AL RDW 11.2 % 11.5-1 4.5 below low normal Not Available [address], [address], 03/13/2024 06:18:35 03/12/2003/12/2024 CBC, PLATE LET, NO DIFFE RENTI AL platelets 347 x10e3 /uL 150-45 0 Mean Plate let Volum e 9.9 fL 8.9-1 2.7 N Not Available [address], [address], 03/13/2024 06:18:35 03/12/2003/12/2024 CBC, PLATE LET, NO DIFFE RENTI AL NRBC 0 % 0-0 Not Available [address], [address], 03/13/2024 06:18:35 03/12/2003/13/2024 TSH+F REE T4 TSH 0.789 uIU/m L 0.450- 4.500 Not Available [facility] ([facility]) [address] [facility], [place], [address], 03/13/2024 13:13:57 03/12/2003/13/2024 TSH+F REE T4 T4,free(dire ct) 1.38 NG/dL 0.82-1 .77 Not Available [facility] ([facility]) [address] [facility] [address], [place], [address], 03/13/2024 13:13:57 03/12/2003/12/2024 HbA1c (hemo globi n A1c), blood HbA1c 5.1 Not Available In-Office Order Internal Use Only DO Not Attach Compendium DO Not Attach Compendium, Do Not Delete/merge, [id number] 03/12/2024 11:37:51 08/15/19 20 08/14/2019 XR, cervi sri spine , 4 or 5 view No observ ation record ed. [facility] Not Available 2019 14:09:38 08/15/19 20 08/14/2019 XR, shoul carole No observ ation record ed. [facility] [address] [facility], [place], [address], 08/17/2019 14:09:38 07/26/19 22 07/24/2021 XR, thora colum bar spine No observ ation [facility]. [facility] [address] [facility], [place], [address], 07/27/2021 09:18:41 08/11/19 22 08/09/2021 XR, chest No observ [facility]ion [facility] [address] [facility], [place], [address], 08/10/2021 13:41:52 08/11/19 22 08/09/2021 XR, pelvi s, 1 or 2 view No observ [facility]ion [facility] ed. [facility] [address] [facility], [place], [address], 08/10/2021 13:39:04 08/11/19 22 08/09/2021 CT, head, w/o contr ast No observ ation record ed. [facility] ([facility]) [address], [place], [address], 08/10/2021 13:38:35 08/11/19 22 08/09/2021 CT, cervi sri spine , w/o contr ast No observ ation record ed. [facility] ([facility] [address], [place], [address], 08/10/2021 13:38:18 08/25/19 22 08/21/2021 CT, lumba r spine , w/o contr ast No observ ation record ed. jnanney Not Available 2021 10:36:29 04/25/19 25 04/25/2024 NM, hepat obili trae scan No observ ation record ed. [place] [address] [facility] [address], [place], [address], 04/25/2024 16:38:47 05/16/19 25 05/16/2024 US, abdom en, limit ed No observ ation record ed. [place] [address] [facility] [address], [place], [address], 05/16/2024 12:07:23 Result Notes None recorded. Problems Name Problem SNOMED Code Status Onset Date Resolution Date Notes Provider Name and Address Organization Details Recorded Time 67993056 Completed 201706/12/2018 Oralia Sprague null, [place] - [facility] 9 17:19:38 Knee pain Active Kathleen Durham [place], [place] [facility] 15:14:21 Foot eczema 359124395 Active Kathleen Durham [place] [facility] 15:14:21 Spasm of back muscles 946116009 Active Kathleen Durham [place], [place] [facility] 15:14:21 Problem Notes None recorded. Procedures Surgical History Date Name Laterality Status Provider Name and Address Organization Details Recorded Time tonsilectom y/adenoids completed Kathleen Durham MA [place] - [facility] 03/18/2021 15:17:19 Imaging Results Imaging Date Name Status LastModified by Organization Details LastModified Time 08/14/2019 XR, cervical spine, 4 or 5 view completed ann Information not available 08/17/2019 14:09:38 08/14/2019 [facility] [address] [place], [address], 08/17/2019 14:09:38 07/24/2021 XR, thoracolumbar spine completed [facility] [address] [facility], [place], [address], 07/27/2021 09:18:41 08/09/2021 XR, chest completed [facility] [address] [place], [address], 08/10/2021 13:41:52 08/09/2021 XR, pelvis, 1 or 2 view completed [facility] [address] [facility], [place], [address], 08/10/2021 13:39:04 08/09/2021 CT, head, w/o contrast completed [facility] ([facility] [address] [place], [address], 08/10/2021 13:38:35 08/09/2021 CT, cervical spine, w/o contrast completed [facility] ([facility] [address] [place], [address], 08/10/2021 13:38:18 08/21/2021 CT, lumbar spine, w/o contrast completed [facility] Information not available 08/24/2021 10:36:29 04/25/2024 NM, hepatobiliary scan completed [facility] [address], [place], [address], 04/25/2024 16:38:47 05/16/2024 US, abdomen, limited completed [facility] [address], [place], [address], 05/16/2024 12:07:23 Procedure Notes None recorded. Medical Equipment None [...] completed Not Available Not Available Not Available Sandoval-Linyah 0.25 mg-35 mcg tablet Take 1 tablet [...] DateTime 03/18/2021 97.1 [degF] Kathleen Durham MA [facility] 15:18:00 Date Recorded Oxygen saturation Oxygen saturation in Arterial blood by Pulse oximetry Provider Name and Address Organization Details Last Updated DateTime 03/18/2021 99 % 99 % Kathleen Durham MA [facility] 03/18/2021 15:18:08 Date Recorded Heart rate Provider Name an d Address Organization Details Last Updated DateTime 03/18/2021 98 /min Kathleen Durham MA [facility] 03/18/20 15:18:11 Date Recorded Body weight Provider Name an d Address Organization Details Last Updated DateTime 03/18/2021 814813.79 g Kathleen Durham MA [facility] 15:20:56 Date Recorded Body height Body mass index (BMI) Provider Name and Address Organization Details Last Updated DateTime 03/18/2021 167.64 cm 42.4 kg/m2 Kathleen Durham MA [facility] 03/18/2021 15:21:00 Date Recorded Body height Provider Name an d Address Organization Details Last Updated DateTime 10/27/2023 167.64 cm Kayleigh Montana MA [facility] 10/27/19 24 14:46:48 Date Recorded Body mass index (BMI) Body weight Provider Name and Address Organization Details Last Updated DateTime 10/27/2023 38.7 kg/m2 715906.17 g Kayleigh Montana MA [facility] 10/27/2023 14:46:55 Date Recorded Heart rate Provider Name an d Address Organization Details Last Updated DateTime 10/27/2023 68 /min Kayleigh Montana MA [facility] 10/27/19 14:48:08 Date Recorded Oxygen saturation Oxygen saturation in Arterial blood by Pulse oximetry Provider Name and Address Organization Details Last Updated DateTime 10/27/2023 98 % 98 % Kayleigh Montana MA [facility] 10/27/2023 14:48:10 Date Recorded Body height Provider Name an d Address Organization Details Last Updated DateTime 03/12/2024 167.64 cm Kathleen Durham MA [facility] 03/12/20 11:14:27 Date Recorded Body mass index (BMI) Body weight Provider Name and Address Organization Details Last Updated DateTime 03/12/2024 37.3 kg/m2 953958.84 g Kathleen Durham MA [facility] 03/12/2024 11:15:45 Date Recorded Oxygen saturation Oxygen saturation in Arterial blood by Pulse oximetry Provider Name and Address Organization Details Last Updated DateTime 03/12/2024 97 % 97 % Kathleen Durham MA [facility] 03/12/2024 11:20:36 Date Recorded Heart rate Provider Name an d Address Organization Details Last Updated DateTime 03/12/2024 65 /min Kathleen Durham MA [facility] 03/12/20 11:20:39 Date Recorded Systolic blood pressure Diastolic blood pressure Provider Name and Address Organization Details Last Updated DateTime 03/18/2021 120 mm[Hg] 72 mm[Hg] Kathleen Durham MA [facility] 03/18/2021 15:19:54 Date Recorded Systolic blood pressure Diastolic blood pressure Provider Name and Address Organization Details Last Updated DateTime 10/27/2023 120 mm[Hg] 80 mm[Hg] Kayleigh Montana MA [facility] 10/27/2023 14:48:12 Date Recorded Systolic blood pressure Diastolic blood pressure Provider Name and Address Organization Details Last Updated DateTime 03/12/2024 126 mm[Hg] 84 mm[Hg] Kathleen Durham MA [facility] 03/12/2024 11:20:33 Social History Question Answer Notes LastModified by Organizat ion Details LastModified Time Tobacco Smoking Status Former Smoker Kayleigh Montana MA null, [facility] 10/27/2023 14:46:11 What Is Your Level Of [...] Information not available 04/09/2020 Marital Status Single Informati on not available 04/09/2020 What Was [...] not available 03/12/2024 General Stress Level High Information not available 04/09/2020 Do You Feel Stressed (tense, Restless, Nervous, Or Anxious, Or Unable To Sleep At Night)? [id number] Information not available 03/18/2021 Do You Use [...] High Blood Pressure N Atrial Fibrillation N Thyroid Problems N Kidney or Bladder Problems N Blood Clots N COPD N Depression N GI Problems N Skin Problems N Anemia N Heart Attack (NC) N Anxiety Disorder N Diabetes N Muscle, Joint, or Bone Problems N Seizures/Epilepsy N Acid Reflux (GERD) N Cancer N Stroke N Asthma N Allergies N High Cholesterol N Hepatitis N Liver Disease N Headaches N Osteoporosis N Heart Failure N Gynecological History Statement/Question Response Age at [...] Time Meningococcal MCV4O 5 completed [facility] 05[facility]/2019 02:43:03 Past Encounters Encounter ID Performer Location Encounter Start Date Encounter Closed Date Diagnosis/Indication Diagnosis SNOMED-CT Code Diagnosis ICD10 Code Diagnosis Note [id number] [facility] [address] [place] [address] 08/26/2014 16:34:21 08/26/2014 17:09:29 Knee pain 19304865 [id number] Jarrod Bunn PA-C [facility] [address] [place] [address] 12/20/2014 16:45:42 12/24/2014 09:06:05 Well child [id number] Jarrod Bunn PA-C [facility] [address] [place] [address] 02/26/2015 15:11:22 02/26/2015 15:39:39 Foot eczema 024205516 L30.9 [id number] Jarrod Bunn PA-C [facility] [address] [place] [address] 06/27/2015 16:20:31 06/30/2015 09:15:18 Spasm of back muscles 069725406 M62.543 [id number] Jarrod Bunn PA-C [facility] [address] [place] [address] 02/03/2016 18:55:17 02/04/2016 09:27:11 Well child 951113786 Z00.753 [id number] [facility] [address] [place] [address] 04/27/2017 15:06:38 04/27/2017 17:06:29 Breasts asymmetrical 208592834 N64.59 Upper resp iratory infection 13037172 J06.9 [id number] Jarrod Bunn PA-C [facility] [address] [place] [address] 07/11/2017 15:49:58 07/12/2017 10:19:40 Acute diarrhea 781952355 R19.7 Migraine without aura 56 212020 G43.974 [id number] [facility] [address] [place] [address] 09/14/2017 13:40:36 09/14/2017 14:43:16 Contraception care management 308568885 Z30.9 [id number] [facility] [address] [place] [address] 10/12/2017 15:02:42 10/12/2017 16:33:37 test positive 991549997 Z32.01 Normal 9936399 2 Z34.90 [id number] ERIN Pizano [facility] [address] [place] [address] 10/26/2017 14:57:32 10/26/2017 15:37:34 Routine care 282220002 Z34.91 [id number] ERIN Pizano 14 OB 4 [facility] [place] [address] 11/15/2017 16:21:47 11/17/2017 16:13:10 Routine care 403319961 Z34.91 Venereal d isease screening 793877360 Z11.3 Hyperemesi s gravidarum 46594759 O21.0 [id number] ERIN Pizano Lianne 14 OB [address] [facility] [place] [address] 12/13/2017 17:06:07 12/14/2017 15:16:58 Normal 83223370 Z34.90 [id number] ERIN Pizano 14 OB [address] [facility] [place] [address] 01/10/2018 17:02:02 01/12/2018 13:12:02 Routine care 592611844 Z34.92 [id number] SUJATA Rivera [address] [place] [address] 01/31/2018 17:09:06 01/31/2018 18:05:17 Atopic dermatitis 61606073 L20.81 Seasonal a llergic rhinitis 135365695 J30.2 [id number] ERIN Pizano [address] [place] [address] 02/10/2018 16:51:33 02/13/2018 14:14:07 Routine care 790684907 Z34.92 [id number] ERIN Pizano Lianne [address] [place] [address] 02/16/2018 11:29:47 02/17/2018 14:17:44 Normal 81998985 Z34.90 Nausea and vomiting 1693 2000 R11.2 [id number] ERIN Pizano [place] [address] [place] [address] [place] [address] 03/08/2018 16:09:34 03/11/2018 11:38:24 Routine care 962741627 Z34.92 RhD negative 949699356 Z 01. [id number] BLANCA Rogers [address] [place] [address] 05/04/2018 16:56:37 05/04/2018 17:46:52 [id number] SUJATA Rivera [address] [place] [address] 04/27/2019 16:52:42 05/01/2019 12:40:14 Dysuria 45541513 R30.9 Otalgia 02838189 H92.02 Headache 29352838 R51 Acute urin trae tract infection 034033368 N30.00 [id number] Jarrod Bunn PA-C [facility] [address] [place] [address] 08/17/2019 14:04:14 08/20/2019 09:59:22 Myofascial pain syndrome of neck 638782800 M54.2 [id number] Jarrod Bunn PA-C [facility] [address] [place] [address] 04/09/2020 15:20:41 04/09/2020 16:53:06 Acute bilateral otitis media 768719032 H65.03 [id number] Jarrod Bunn PA-C [address] [address] 03/18/2021 15:08:26 03/18/2021 16:14:44 Cholelithiasis without obstruction 26180374 K80.20 Body mass index 30+ - obesity 098603585 Z68.41 [id number] Jarrod Bunn PA-C [facility] [address] [place] [address] 10/27/2023 14:38:09 10/28/2023 11:52:54 Sprain of right ankle 1345744532 9127389 S93.411A Overweight 306467357 E66 .3 [id number] Kathleen Durham MA [facility] [address] [place] [address] 03/12/2024 11:08:58 03/20/2024 12:13:41 Mixed anxiety and depressive disorder 324448937 F41.8 Chronic diarrhea 7833622 09 K52.9 Irritable bowel syndrome with diarrhea 399141294 K58.0 Overweight 626803141 E66 .3 Health Concerns Section Related Observation LastModified by Organization Detai ls LastModified Time None Recorded Concern Status LastModified by Organization Details LastModified Time None Recorded Advance Directives Directive None Recorded Payers Encounter Date Sequence Insurance Name Policy Number Policy Dudley Covered Member ID Dudley Member ID Guarantor Name 08/17/2019 1 [facility] PRIOR TO 10/16/2020 (MEDICAID REPLACEMENT - HMO) Connie Cathorall [id number] Connie Cathorall 04/09/2020 1 [facility] PRIOR TO 10/16/2020 (MEDICAID REPLACEMENT - HMO) Connie Cathorall [id number] Connie Cathorall 03/18/2021 1 [facility] ON OR AFTER 10/16/20 (MEDICAID REPLACEMENT - HMO) Connie Cathorall [id number] Connie Cathorall 10/27/2023 1 [facility] ON OR AFTER 10/16/20 (MEDICAID REPLACEMENT - HMO) Connie Hamilton [id number] Connie Cathorall 03/12/2024 1 [facility] ON OR AFTER 10/16/20 (MEDICAID REPLACEMENT - HMO) Connie Hamilton [id number] Connie Cathorall Notes Date Note Type Note Provider Name and Address Organization Details Recorded Time 08/17/2019 text/html fell and hit her neck on a high chair...went to ER...neck was not broken..muscle relaxers and prednisone Jarrod Bunn PA-C Attn: Accounting,[address] [place], [address], [facility] 08/17/2019 14:12:52 04/09/2020 text/html says she has an infection in both ears...denies fever...does report sinus issues...has a long history of ear infections Jarrod Bunn PA-C Attn: [address]ing[address] [place], [address], [facility] 04/09/2020 16:45:16 03/18/2021 text/html 20 y/o F present s for hospital follow up. Pt was seen at [facility] ER for upper back, epigastric pain that [...] hrs. Jarrod Bunn PA-C Attn: [address]ing[address] , [place], [address], [facility] 03/18/2021 16:12:29 10/27/2023 text/html came back from a float trip...without issue...then sprained her ankle on the steps at home....ER said no break Jarrod Bunn PA-C Attn: Accounting,[address] [facility], [place], [address], [facility] - [facility] 10/27/2023 15:02:04 03/12/2024 text/html always diarrhea for a year..yellow..stom ach cramps fatigue...sleeping is only relief...seems rapid transit...OTC no help..emotional changes make condition worse... Kathleen Durham MA [facility], [place] - SIF 03/12/2024 11:54:45 OBGyn Episode Ob Episode Information Episode Created Date Number of Fetuses Patient Bloodtype Patient rh Status Prepregnancy Weight lbs Domestic Partner Domestic Partner Phone Father Name Photography Assistant Status 10/13/19 18 1 A Negative 206 Presley Schrum CLOSED Fetus Data First Name Last Name Admitted to NICU Weight (g) Sex Living Outcome Pediatric Complications Fetus ID Race Codes Race Delivery Type kalyan hamilton false [id number] 7 F true Full Term [id number] White Vaginal Christ Calculation Initial Christ Date Initial Exam Date Initial Exam Provider Initial Ultrasound Date Last Menstrual Period Date Ultra Sound Weeks Gestation 06/02/2018 10/12/2017 [email or web address] 11/03/2017 07/22/2017 9 Eighteen To Twenty Week Christ Update Ultra Sound Date Fundal Height At Umbil Quickening Date Ultra Sound Latest Weeks Gestation Final Christ Confirmed By Final Christ Confirmed Date Final Christ Date Ultra Sound Latest Days Gestation 0 [email or web address] 11/07/2017 019 0 Pre-vlad Flowsheet Flowsheet Date 10/12/2017 Christian Score Blood Edema Fundus Height Fundus Units Glucose Ketones Leukocytes Nitrite Labor Signs Protein Cervic Dilation Cervic Effacement Cervic Station Type Weight in lbs Pre/Post Dialysis Refused Weight 206.680262360148 BP Diastolic BP Location Tested BP Systolic BP Type 80 110 sitting Fetus Heart Rate Present Fetus Movement Comments Flowsheet Date 10/26/2017 Christian Score Blood Edema Fundus Height Fundus Units Glucose Ketones Leukocytes Nitrite Labor Signs Protein Cervic Dilation Cervic Effacement Cervic Station Type Weight in lbs Pre/Post Dialysis Refused Weight 208.25909411257 BP Diastolic BP Location Tested BP Systolic [...] Weight in lbs Pre/Post Dialysis Refused Weight 207.575127531518 BP Diastolic BP Location Tested BP Systolic [...] Weight in lbs Pre/Post Dialysis Refused Weight 210.642120106464 BP Diastolic BP Location Tested BP Systolic [...] Weight in lbs Pre/Post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
[2024-05-18] MEDS: LACTATED RINGERS 1,000 ML 30 ML IV CONT ×2 (07:30→10:30)
--- NOTE | 2024-05-18 08:02 | P.PNAN_ITS ---
Anes - Initial Pre Proc Eval Procedure: Operation Date: 05/18/24 08:30 Proposed Procedures p Laparoscopic Cholecystectomy with Possible Open - Jesus Rowland MD Date/Time: 05/18/24 08:02 Surgeon: Jesus Rowland MD Pre Op Diagnosis: Biliary Colic Secondary to Gallstones Gallbladder Patient Data Age: 23 Gender: F Height: 1.68 m Weight: 102.3 kg Allergies Allergy/AdvReac Type Severity Reaction Status Date / Time No Known Allergies Allergy Verified 05/16/24 12:49 Home Medications ?Medication ?Instructions ?Recorded ?Confirmed ?Type escitalopram oxalate 10 mg tablet 10 mg PO DAILY 03/29/24 05/16/24 History dicyclomine 10 mg capsule 10 mg PO TID #90 caps 04/06/24 05/16/24 Rx pantoprazole 40 mg tablet,delayed 40 mg PO QAM #30 tabs 04/06/24 05/16/24 Rx release Laboratory Tests 05/18/24 07:55 Total Bilirubin Pending Direct Bilirubin Pending AST Pending ALT Pending Alkaline Phosphatase Pending Total Protein Pending Albumin Pending Amylase Pending Lipase Pending Patient hx anesthesia problems: none Family hx anesthesia problems: none Results Review: All pre-operative results and documents have been reviewed as part of the pre- operative evaluation. [facility] Past Medical History Medical History Generalized headaches Depression Anxiety Allergies GERD (gastroesophageal reflux disease) Surgical History Surgical History History of tonsillectomy and adenoidectomy Family History Family History Grandparent Cancer Heart disease Hypertension Mother Depression Hypertension Sibling Depression Hypertension Other No significant family history Social History Social History (Updated 05/18/24 @ 08:04 by Papi Garay MD) Smoking status: Never smoker Substance use: never Do You Feel Safe in your Home?: Yes Lack of Transportation: No Lack of Food: Often True Current Housing: Decline to Answer Concerned About Future Housing: No Difficulty Paying Gas/Electric Bills: Decline to Answer Difficulty Paying for Meds: No Currently Unemployed: YES Education: High School Diploma/GED Difficulty w/ Childcare or Family Care: No Living arrangements: with family Gender identity (if verbalized by the patient): Female Spiritual care concerns: No Anes - Eval Final PreProcedure Day of Procedure 05/18/24 08:02 Patient weight: obese Heart: regular rate and rhythm Lungs: clear to auscultation Airway: Mallampati scale class II Neurological: alert and oriented Last oral intake: >/= 8 hours ASA classification: II Emergent: no Anesthetic plan: proceed Anesthesia type and monitoring: general ETT and standard monitoring Results Review: All pre-operative results and documents have been reviewed as part of the pre- operative evaluation. Informed Consent: The patient's anesthetic plan and its attendant risks and benefits were discussed with the patient/family/POA. Questions were solicited and answers provided to the satisfaction of the patient/family/POA.
[2024-05-18 08:20] LABS: BEDSIDEPREGUCG Negative (Negative)
[2024-05-18 08:21] LABS: Alanine Aminotransferase 32 U/L (6-35); Albumin Level 4.2 g/dL (3.5-5.1); Alkaline Phosphatase 53 U/L (38-126); Amylase 63 U/L (30-110); Aspartate Amino Transferase 31 U/L (14-36); Bilirubin,Total 0.8 mg/dL (0.2-1.3); Lipase 79 U/L (23-300)
[2024-05-18] MEDS: KETOROLAC 15 MG/ML VIAL (*BKC) IV PUSH (08:21)
[2024-05-18] MEDS: ACETAMINOPHEN 500 MG TABLET 1000 MG PO (08:21)
--- NOTE | 2024-05-18 08:34 | WPDHPUPDATE1 ---
History and Physical Update Update Date/Time: 05/18/24 08:34 History and Physical has been reviewed, including an updated exam of the patient. There are NO changes in the patient's condition. Risks, benefits, and alternatives have been discussed and questions answered. Patient agrees to proceed with procedure.
[2024-05-18] MEDS: ceFAZolin 2 GM/D5W 50 ML 2 GM/50 ML BAG IVPB (08:53)
[2024-05-18] MEDS: LIDO 1%/EPINEPHRINE 1:100,000 50 ML VIAL 15 ML INFILTRATE (09:28)
[2024-05-18] MEDS: BUPivacaine HCL 0.5% PF 30 ML VIAL 15 ML INFILTRATE (09:28)
[2024-05-18] MEDS: fentaNYL CITRATE INJ (*CRX) 100 MCG/2 ML VIAL 25 MCG IV PUSH ×8 (10:37→11:50)
[2024-05-18] MEDS: ONDANSETRON INJ 4 MG/2 ML VIAL IV PUSH (10:39)
--- NOTE | 2024-05-18 10:40 | P.OP_ITS ---
Procedure Note - Detailed Date of Procedure 05/18/24 Pre-op Diagnosis Biliary Colic Secondary to Gallstones Gallbladder Post-op Diagnosis Other (Subacute cholecystitis secondary to cholelithiasis) Procedure Performed Laparoscopic cholecystectomy Surgeon Jesus Rowland MD Telephone Station Repairer Amirah Lira, [facility] Anesthesia General Indications Patient is a 23-year-old female who presented with complaints of right upper quadrant and epigastric abdominal pain associated when nauseous especially with eating. As an outpatient by her primary care physician a HIDA scan was performed showing nonvisualization of the gallbladder. There is no documentation that she had a ultrasound performed showing any evidence of gallstones. As an outpatient a ultrasound was obtained of the gallbladder showing multiple gallbladder stones and some gallbladder wall thickening. After discussing with the patient that she has continued to have worsening symptoms almost on a daily basis I have recommended she proceed with a elective laparoscopic cholecystectomy. She presents today for that procedure. Findings The patient I dilated and thickened gallbladder with chronic inflammation of the gallbladder wall. It was actually a stone in the cystic duct likely con tributing to the subacute nature of the cholecystitis. The gallbladder had too numerous to count gallstones as the gallbladder was filled with gallstones. Description of Procedure After informed consent was obtained patient brought to the operating room she was placed supine position and general endotracheal anesthesia was administered. The abdomen was then prepped and draped usual sterile fashion. A time-out was then performed correctly identifying the patient as well as the procedure to be performed. She was given perioperative IV antibiotics. I entered the abdomen left upper quadrant utilizing a 5mm Optiview port. Once inside the abdomen insufflated to adequate pneumoperitoneum of 15mmHg of CO2. There were no adhesions around the area the umbilicus on evaluation and so then I placed a 5mm periumbilical trocar port without difficulty under direct visualization. The laparoscopic was then switched over to the periumbilical port looking to the upper portions of the abdomen I placed a 10mm epigastric trocar port as well as 2 more 5mm right subcostal trocar ports all under direct visualization. The gallbladder was distended and thickened. The wall was not erythematous but it was chronically thickened. There were no adhesions of the duodenum, omentum, or stomach to the gallbladder wall. The gallbladder was held with a laparoscopic grasper at the dome and elevated over the right half liver towards the right shoulder. A 2nd grasper used to hold the gallbladder at the infundibulum. I then proceeded to strip down adipose tissue and visceral peritoneum off of the infundibular gallbladder to identify the cystic duct. The cystic duct was then dissected out circumferentially. There appeared to be a stone within the pr oximal portion of the cystic duct. The cystic artery was then identified and was dissected out circumferentially as well. Posterior wall the gallbladder at the infundibulum dissected free liver into the critical view was obtained. At this point I tried to reduce the cystic duct stone back up into the infundibular gallbladder. There was marginally successful. I did however have enough length of the cystic duct to place 2 clips proximally just distal to the cystic duct and common bile duct junction. Another 2 clips were then placed higher on the cystic duct. I then divided the cystic duct with Endo Bret. In a similar fashion the cystic artery was then clipped and divided as well. This gallbladder was then resected off the liver utilized electrocautery. The gallbladder was rather intrahepatic but dissected off the liver bed without any significant bleeding. Once the gallbladder was free from the liver is placed into an Endo-Catch bag and brought out through the epigastric port site. The gallbladder was packed filled with gallstones. The gallbladder and the gallstones were sent to pathology for examination. I then irrigated out the right upper quadrant the abdomen the gallbladder fossa with sterile saline solution. Hemostasis in the gallbladder bed was good. There is no evidence of bile leak. I then aspirated the fluid from the right upper quadrant the abdomen from the pelvis. I then removed all the trocar ports under direct visualization all port sites appeared hemostatic. The abdomen was then allowed to decompress. The epigastric 10mm trocar port fascial defect was then closed using an 0 Vicryl suture at the fascial level. The skin edges in all the port sites were then approximated utilizing a running subcuticular 4-0 Monocryl suture. The incisions were then cleaned and then skin glue was applied. The patient tolerated the procedure well no complications. All sponges, needles, and instrument counts were correct at the end procedure. EBL was _20__cc. The patient was awakened and taken to recovery in stable and satisfactory condition. Implants None Estimated Blood Loss 20 Drains No Packing No Pathology Yes (Gallbladder and gallstones sent to pathology) Complications No immediate complications Condition Stable Disposition PACU [facility] Billing Surgery - Charge Forward: Surgery Billing
[2024-05-18] MEDS: oxyCODONE HCL (*CRX) 5 MG TAB IR PO (12:06)
== END 2024-05-18 12:56 | disposition home or self-care (01) ==
PROVIDERS: PCP Physician Assistant; Visit Provider Surgery
PROC: 0FT44ZZ Resection of Gallbladder, Percutaneous Endoscopic Approach (ICD-10-PCS; CPT 47562; principal; 2024-05-18 08:30)
DX: K80.10 Calculus of gallbladder with chronic cholecystitis without obstruction (principal); K21.9 Gastro-esophageal reflux disease without esophagitis; F32.A Depression, unspecified; F41.9 Anxiety disorder, unspecified; E66.9 Obesity, unspecified; Z68.35 Body mass index [BMI] 35.0-35.9, adult; Z98.890 Other specified postprocedural states; Z80.9 Family history of malignant neoplasm, unspecified; Z82.49 Family history of ischemic heart disease and other diseases of the circulatory system
CPT/HCPCS: 47562; 36415; 80076; 82150; 83690; 88304; A9270; J0690; J1100; J1885; J2004; J2250; J2405; J2704; J3010; J7120

== ENCOUNTER 2024-05-19 19:54 | Emergency (ER) | payer OTHER, SELFPAY ==
--- NOTE | ~2024-05-19 | CT_ITS ---
EXAMINATION: CT abdomen pelvis w con DATE: 05/19/2024 22:17 INDICATION: Abdominal pain TECHNIQUE: Computed tomography (CT) of the abdomen and pelvis was performed with 100 mL Omnipaque-350 intravenous contrast. Automated exposure control and iterative reconstruction technique were employe d. The dose-length product was 1418.39 mGy-cm. COMPARISON: Ultrasound dated 05/16/2024 FINDINGS: Mild dependent atelectasis in bilateral lower lobes. Heart size is normal. Heart size normal. No xena cardial or pleural effusion. Postoperative changes interval cholecystectomy with surgical clips and m inimal fluid/hematoma at the gallbladder fossa. There is dependently layering small hematocrit level in the posterior aspect of a small amount of hemoperitoneum in the cul-de-sac. There is a small amoun t of intraperitoneal gas below the right hemidiaphragm and gas in the soft tissues of the abdominal w all. Focal abdominal wall fat stranding along likely laparoscopy port tracts. No abscess. Liver, spl een, pancreas, bilateral adrenal glands and kidneys are normal. Bowels including the appendix are nor mal. Bladder, uterus and bilateral adnexa are unremarkable with normal 2 cm right ovarian follicle. N o pathologically enlarged abdominal or pelvic lymphadenopathy. Thoracic and lumbar spondylosis. IMPRESSION: 1. Small amount of likely postoperative hemoperitoneum in the cul-de-sac and minimal hemoperitoneum a t the gallbladder fossa post recent cholecystectomy. Reviewed, dictated and finalized at location A. D ASSOCIATE IMPRESSION: 1. Small amount of likely postoperative hemoperitoneum in the cul-de-sac and mi nimal hemoperitoneum at the gallbladder fossa post recent cholecystectomy.
[2024-05-19 19:56] VITALS: BP 146/107; PULSE 86; RESP 24; TEMP 37.1; O2SAT 100
--- OUTSIDE RECORDS SUMMARY | 2024-05-19 19:56 | XMS_ITS | Data Portability ---
Author Organization KATY Sanchez GARCIA Address [address] [place] [address] Care Team Providers Care Ship Unloader Name Role Phone JARROD BUNN Primary Care Provider JAKE HENRIQUEZ Chief Of Staff Doctor Unavailable Assessment No assessment recorded. Plan of Treatment Reminders Order Date Submit Date Provider Last Modified By Organization Details Last Modified Time Details Appointments None recorded. Lab CBC 2023 [facility], [address] [place] [address], [facility] [address], [place], [address], 4 06:18:36 CMP, serum or plasma 2023 [facility], [address] [place] [address], [facility] [address], [place], [address], 4 06:18:34 lipid panel, serum 2023 [facility], [address] [place] [address], [address], [place], [address], 4 06:18:32 TSH + free T4, serum 2023 [facility], [address] [place] [address], [address], [place], [address], 4 13:13:58 HbA1c (hemoglobi n A1c), blood 2023 [facility] In-Office Order, Internal Use Only DO Not Attach Compendium DO Not Attach Compendium, Do Not Delete/merge, [id number] 4 11:54:06 Referral gastroente rologist referral 2020 [email or web address] Not available 13:49:57 gastroente rologist referral 2023 024 [facility], [address], [id number], [place], [address], 18:17:32 Procedures None recorded. Surgeries None recorded. Imaging None recorded. Medication Orders tramadol 50 mg tablet 2019 020 [facility], [address] [place] [address], [address], 4 14:44:48 amoxicilli n 875 mg tablet 2019 020 [facility], [address] [place] [address], [address], 4 14:45:09 Lomotil 2.5 mg-0.025 mg tablet 2023 024 [facility], [address] [place], [address], 4 11:34:23 escitalopr am 10 mg tablet 2023 024 [facility], [address] [place], [address], 4 11:34:19 Patient TargetsNo targets recorded. Patient Instructions Encounter Date Encounter Id Patient Instructions Last Modified By Organization Details Last Modified Time 03/18/2021 [id number] body mass index: care instructions [email or web address] Not available 03/18/2021 16:07:08 learning about healthy weight [email or web address] Not available 03/18/2021 16:07:07 10/27/2023 [id number] A healthy lifestyle: care instructions [email or web address] Not available 10/27/2023 15:00:25 03/12/2024 [id number] A healthy lifestyle: care instructions [email or web address] Not available 03/12/2024 11:37:31 Reason for Referral Mix Chemist Referral for Cholelithiasis without obstruction Referring Physician: Jarrod Bunn [facility], Encounter Date: 03/18/2021 Mix Chemist Referral for Chronic diarrhea Referring Physician: Jarrod Bunn [facility], Encounter Date: 03/12/2024 Results Created Date Observation Date Name Description Value Unit Range Abnormal Flag Note LastModifiedBy Organization Detail LastModifiedTime 03/12/2003/13/2024 LIPID PANEL cholesterol, total 158 mg/dL 100-19 9 Not Available [address], [address], 03/13/2024 06:18:32 03/12/2003/13/2024 LIPID PANEL triglyceride s 95 mg/dL 0-149 Not Available [address], [address], 03/13/2024 06:18:32 03/12/2003/13/2024 LIPID PANEL HDL cholesterol 33 mg/dL 40-999 below low normal Not Available [address], [address], 03/13/2024 06:18:32 03/12/2003/13/2024 LIPID PANEL VLDL cholesterol sri 19 mg/dL 5-40 Not Available [address], [address], 03/13/2024 06:18:32 03/12/2003/13/2024 LIPID PANEL LDL chol calc ([facility]) 119 mg/dL 0-99 above high normal Not Available [address], [address], 03/13/2024 06:18:32 03/12/202024 COMP. METAB OLIC PANEL (14) glucose 76 mg/dL 70-99 Not Available [facility] & [address], [address], 03/13/2024 06:18:34 03/12/20 24 03/13/2024 COMP. METAB OLIC PANEL (14) BUN 10 mg/dL 6-20 Not Available [facility] & [address], [address], 03/13/2024 06:18:34 03/12/20 24 03/13/2024 COMP. METAB OLIC PANEL (14) creatinine 0.81 mg/dL 0.76-1 .27 Not Available [address], [address], 03/13/2024 06:18:34 03/12/20 24 03/13/2024 COMP. METAB OLIC PANEL (14) eGFR 103 >=60 Units for eGFR value s are mL/mi n/1.7 3 The eGFR Calcu latio n has not been valid ated for patie nts under the age of 18. If test resul ts are displ ayed for a patie nt under the age of 18, disre wm that value . Not Available [address], [address], 03/13/2024 06:18:34 03/12/20 24 03/13/2024 COMP. METAB OLIC PANEL (14) BUN/creatini ne ratio 12 9-23 Not Available [address], [address], 03/13/2024 06:18:34 03/12/20 24 03/13/2024 COMP. METAB OLIC PANEL (14) sodium 141 mmol/ L 134-14 4 Not Available [address], [address], 03/13/2024 06:18:34 03/12/20 24 03/13/2024 COMP. METAB OLIC PANEL (14) potassium 3.9 mmol/ L 3.5-5. 2 Not Available [address], [address], 03/13/2024 06:18:34 03/12/20 24 03/13/2024 COMP. METAB OLIC PANEL (14) chloride 106 mmol/ L 96-106 Not Available [address], [address], 03/13/2024 06:18:34 03/12/20 24 03/13/2024 COMP. METAB OLIC PANEL (14) carbon dioxide, total 24 mmol/ L 20-29 Not Available [address], [address], 03/13/2024 06:18:34 03/12/20 24 03/13/2024 COMP. METAB OLIC PANEL (14) calcium 9.5 mg/dL 8.7-10 .2 Not Available [address], [address], 03/13/2024 06:18:34 03/12/20 24 03/13/2024 COMP. METAB OLIC PANEL (14) protein, total 7.5 g/dL 6.0-8. 5 Not Available [address], [address], 03/13/2024 06:18:34 03/12/20 24 03/13/2024 COMP. METAB OLIC PANEL (14) albumin 4.5 g/dL 4.0-5. 0 Not Available [address], [address], 03/13/2024 06:18:34 03/12/20 24 03/13/2024 COMP. METAB OLIC PANEL (14) globulin, total 3.0 g/dL 1.5-4. 5 Not Available [address], [address], 03/13/2024 06:18:34 03/12/20 24 03/13/2024 COMP. METAB OLIC PANEL (14) A/G ratio 1.0 1.2-2. 2 below low normal Not Available [address], [address], 03/13/2024 06:18:34 03/12/20 24 03/13/2024 COMP. METAB OLIC PANEL (14) bilirubin, total 0.6 mg/dL 0.0-1. 2 Not Available [address], [address], 03/13/2024 06:18:34 03/12/20 24 03/13/2024 COMP. METAB OLIC PANEL (14) alkaline phosphatase 53 IU/L 44-121 Not Available [address], [address], 03/13/2024 06:18:34 03/12/20 24 03/13/2024 COMP. METAB OLIC PANEL (14) AST (SGOT) 28 IU/L 0-40 Not Available [address], [address], 03/13/2024 06:18:34 03/12/20 24 03/13/2024 COMP. METAB OLIC PANEL (14) ALT (SGPT) 33 IU/L 0-32 above high normal Not Available [address], [facility], 03/13/2024 06:18:34 03/12/20 24 03/13/2024 CARDI OVASC ULAR REPOR T interpretati on Note Suppl cal rojas is avail able. Not Available [address], [address], 03/13/2024 06:18:35 03/12/2003/13/2024 CORDELL Moody pdf . Not Available [address], [address], 03/13/2024 06:18:35 03/12/2003/12/2024 CBC, PLATE LET, NO DIFFE RENTI AL WBC 8.0 x10e3 /uL 3.4-10 .8 Eff ectiv e Decem kash 2023 [place] [address] 5 WBC will be made* * non-o rdera ble as a stand -kelsie e order code. Not Available [address], [address], 03/13/2024 06:18:35 03/12/20 24 03/12/2024 CBC, PLATE LET, NO DIFFE RENTI AL RBC 4.35 x10e6 /uL 3.77-5 .28 Not Available [address], [address], 03/13/2024 06:18:35 03/12/20 24 03/12/2024 CBC, PLATE LET, NO DIFFE RENTI AL hemoglobin 13.2 g/dL 11.1-1 5.9 Not Available [address], [address], 03/13/2024 06:18:35 03/12/20 24 03/12/2024 CBC, PLATE LET, NO DIFFE RENTI AL hematocrit 40.0 % 34.0-4 6.6 Not Available [address], [address], 03/13/2024 06:18:35 03/12/20 24 03/12/2024 CBC, PLATE LET, NO DIFFE RENTI AL MCV 92 fL 79-97 Not Available [address], [address], 03/13/2024 06:18:35 03/12/2003/12/2024 CBC, PLATE LET, NO DIFFE RENTI AL MCH 30.3 pg 26.6-3 3.0 Not Available [address], [address], 03/13/2024 06:18:35 03/12/2003/12/2024 CBC, PLATE LET, NO DIFFE RENTI AL MCHC 33.0 g/dL 31.5-3 5.7 Not Available [address], [address], 03/13/2024 06:18:35 03/12/2003/12/2024 CBC, PLATE LET, NO DIFFE RENTI AL RDW 11.2 % 11.5-1 4.5 below low normal Not Available [address], [address], 03/13/2024 06:18:35 03/12/2003/12/2024 CBC, PLATE LET, NO DIFFE RENTI AL platelets 347 x10e3 /uL 150-45 0 Mean Plate let Volum e 9.9 fL 8.9-1 2.7 N Not Available [address], [address], 03/13/2024 06:18:35 03/12/2003/12/2024 CBC, PLATE LET, NO DIFFE RENTI AL NRBC 0 % 0-0 Not Available [address], [address], 03/13/2024 06:18:35 03/12/2003/13/2024 TSH+F REE T4 TSH 0.789 uIU/m L 0.450- 4.500 Not Available [facility] ([facility]) [address] [facility], [place], [address], 03/13/2024 13:13:57 03/12/2003/13/2024 TSH+F REE T4 T4,free(dire ct) 1.38 NG/dL 0.82-1 .77 Not Available [facility] ([facility]) [address] [facility], [place], [address], 03/13/2024 13:13:57 03/12/2003/12/2024 HbA1c (hemo globi n A1c), blood HbA1c 5.1 Not Available In-Office Order Internal Use Only DO Not Attach Compendium DO Not Attach Compendium, Do Not Delete/merge, [id number] 03/12/2024 11:37:51 08/15/19 20 08/14/2019 XR, cervi sri spine , 4 or 5 view No observ ation record ed. [facility] Not Available 2019 14:09:38 08/15/19 20 08/14/2019 XR, shoul carole No observ ation record ed. [facility] [address] [facility], [place], [address], 08/17/2019 14:09:38 07/26/19 22 07/24/2021 XR, thora colum bar spine No observ [facility]ion [facility] [address] [facility], [place], [address], 07/27/2021 09:18:41 08/11/19 22 08/09/2021 XR, chest No observ [facility]ion [facility] [address] [facility], [place], [address], 08/10/2021 13:41:52 08/11/19 22 08/09/2021 XR, pelvi s, 1 or 2 view No observ [facility] [address] [facility], [place], [address], 08/10/2021 13:39:04 08/11/19 22 08/09/2021 CT, head, w/o contr ast No observ ation record ed. [facility] ([facility]) [address], [place], [address], 08/10/2021 13:38:35 08/11/19 22 08/09/2021 CT, cervi sri spine , w/o contr ast No observ ation record ed. [facility] ([facility]) [address], [place], [address], 08/10/2021 13:38:18 08/25/19 22 08/21/2021 CT, lumba r spine , w/o contr ast No observ ation record ed. jnanney Not Available 2021 10:36:29 04/25/19 25 04/25/2024 NM, hepat obili trae scan No observ ation record ed. [place] [address] [facility] [address], [place], [address], 04/25/2024 16:38:47 05/16/19 25 05/16/2024 US, abdom en, limit ed No observ ation record ed. [place] [address] [facility] [address], [place], [address], 05/16/2024 12:07:23 Result Notes None recorded. Problems Name Problem SNOMED Code Status Onset Date Resolution Date Notes Provider Name and Address Organization Details Recorded Time 24042775 Completed 201706/12/2018 Oralia Spr[place] null, [place] - [facility] 9 17:19:38 Knee pain Active Kathleen Durham [place] [facility] 15:14:21 Foot eczema 129848340 Active Kathleen [place] [facility] 15:14:21 Spasm of back muscles 945429402 Active Kathleen Durham [place] [facility] 15:14:21 Problem Notes None recorded. Procedures Surgical History Date Name Laterality Status Provider Name and Address Organization Details Recorded Time tonsilectom y/adenoids completed Kathleen Durham MA [place] - [facility] 03/18/2021 15:17:19 Imaging Results Imaging Date Name Status LastModified by Organization Details LastModified Time 08/14/2019 XR, cervical spine, 4 or 5 view completed ann Information not available 08/17/2019 14:09:38 08/14/2019 [facility] [address] [place], [address], 08/17/2019 14:09:38 07/24/2021 XR, thoracolumbar spine completed ([facility]) [address] [facility], [place], [address], 07/27/2021 09:18:41 08/09/2021 XR, chest completed [facility] ([facility]) [address] [place], [address], 08/10/2021 13:41:52 08/09/2021 XR, pelvis, 1 or 2 view completed [facility] ([facility] [address] [facility], [place], [address], 08/10/2021 13:39:04 08/09/2021 CT, head, w/o contrast completed [facility] ([facility] [address] [place], [address], 08/10/2021 13:38:35 08/09/2021 CT, cervical spine, w/o contrast completed [facility] ([facility] [address] [place], [address], 08/10/2021 13:38:18 08/21/2021 CT, lumbar spine, w/o contrast completed [facility] Information not available 08/24/2021 10:36:29 04/25/2024 NM, hepatobiliary scan completed [facility] [address], [place], [address], 04/25/2024 16:38:47 05/16/2024 US, abdomen, limited completed [facility] [address], [place], [address], 05/16/2024 12:07:23 Procedure Notes None recorded. Medical [...] completed Not Available Not Available Not Available [place] 0.25 mg-35 mcg tablet Take 1 tablet [...] DateTime 03/18/2021 97.1 [degF] Kathleen Durham MA [facility] 15:18:00 Date Recorded Oxygen saturation Oxygen saturation in Arterial blood by Pulse oximetry Provider Name and Address Organization Details Last Updated DateTime 03/18/2021 99 % 99 % Kathleen Durham MA [facility] 03/18/2021 15:18:08 Date Recorded Heart rate Provider Name an d Address Organization Details Last Updated DateTime 03/18/2021 98 /min Kathleen Durham MA [facility] 03/18/20 15:18:11 Date Recorded Body weight Provider Name an d Address Organization Details Last Updated DateTime 03/18/2021 765469.79 g Kathleen Durham MA [facility] 15:20:56 Date Recorded Body height Body mass index (BMI) Provider Name and Address Organization Details Last Updated DateTime 03/18/2021 167.64 cm 42.4 kg/m2 Kathleen Durham MA [facility] 03/18/2021 15:21:00 Date Recorded Body height Provider Name an d Address Organization Details Last Updated DateTime 10/27/2023 167.64 cm Kayleigh Montana MA [facility] 10/27/19 24 14:46:48 Date Recorded Body mass index (BMI) Body weight Provider Name and Address Organization Details Last Updated DateTime 10/27/2023 38.7 kg/m2 666046.17 g Kayleigh Montana MA [facility] 10/27/2023 14:46:55 Date Recorded Heart rate Provider Name an d Address Organization Details Last Updated DateTime 10/27/2023 68 /min Kayleigh Montana MA [facility] 10/27/19 14:48:08 Date Recorded Oxygen saturation Oxygen saturation in Arterial blood by Pulse oximetry Provider Name and Address Organization Details Last Updated DateTime 10/27/2023 98 % 98 % Kayleigh Montana MA [facility] 10/27/2023 14:48:10 Date Recorded Body height Provider Name an d Address Organization Details Last Updated DateTime 03/12/2024 167.64 cm Kathleen Durham MA [facility] 03/12/20 11:14:27 Date Recorded Body mass index (BMI) Body weight Provider Name and Address Organization Details Last Updated DateTime 03/12/2024 37.3 kg/m2 408902.84 g Kathleen Durham MA [facility] 03/12/2024 11:15:45 Date Recorded Oxygen saturation Oxygen saturation in Arterial blood by Pulse oximetry Provider Name and Address Organization Details Last Updated DateTime 03/12/2024 97 % 97 % Kathleen Durham MA [facility] 03/12/2024 11:20:36 Date Recorded Heart rate Provider Name an d Address Organization Details Last Updated DateTime 03/12/2024 65 /min Kathleen Durham MA [facility] 03/12/20 11:20:39 Date Recorded Systolic blood pressure Diastolic blood pressure Provider Name and Address Organization Details Last Updated DateTime 03/18/2021 120 mm[Hg] 72 mm[Hg] Kathleen Durham MA [facility] 03/18/2021 15:19:54 Date Recorded Systolic blood pressure Diastolic blood pressure Provider Name and Address Organization Details Last Updated DateTime 10/27/2023 120 mm[Hg] 80 mm[Hg] Kayleigh Montana MA [facility] 10/27/2023 14:48:12 Date Recorded Systolic blood pressure Diastolic blood pressure Provider Name and Address Organization Details Last Updated DateTime 03/12/2024 126 mm[Hg] 84 mm[Hg] Kathleen Durham MA [facility] 03/12/2024 11:20:33 Social History Question Answer Notes LastModified by Organizat ion Details LastModified Time Tobacco Smoking Status Former Smoker Kayleigh Montana MA null, [facility] 10/27/2023 14:46:11 What Is Your Level Of [...] Anxious, Or Unable To Sleep At Night)? [id number] Information not available 03/18/2021 Do You Use [...] Response Coronary Artery Disease N Other N Atrial Fibrillation N High Blood Pressure N Kidney or Bladder Problems N Thyroid Problems N GI Problems N Depression N COPD N Blood Clots N Skin Problems N Anemia N Heart Attack (TN) N Anxiety Disorder N Diabetes N Muscle, [...] Time Meningococcal MCV4O 5 completed [facility] 02:43:03 Past Encounters Encounter ID Performer Location Encounter Start Date Encounter Closed Date Diagnosis/Indication Diagnosis SNOMED-CT Code Diagnosis ICD10 Code Diagnosis Note [id number] [facility] [address] [place] [address] 08/26/2014 16:34:21 08/26/2014 17:09:29 Knee pain 12213819 [id number] Jarrod Bunn PA-C [facility] [address] [place] [address] 12/20/2014 16:45:42 12/24/2014 09:06:05 Well child [id number] Jarrod Bunn PA-C [facility] [address] [place] [address] 02/26/2015 15:11:22 02/26/2015 15:39:39 Foot eczema 653627059 L30.9 [id number] Jarrod Bunn PA-C [facility] [address] [place] [address] 06/27/2015 16:20:31 06/30/2015 09:15:18 Spasm of back muscles 527189582 M62.574 [id number] Jarrod Bunn PA-C [facility] [address] [place] [address] 02/03/2016 18:55:17 02/04/2016 09:27:11 Well child 967008738 Z00.808 [id number] [facility] [address] [place] [address] 04/27/2017 15:06:38 04/27/2017 17:06:29 Breasts asymmetrical 694203833 N64.59 Upper resp iratory infection 87996142 J06.9 [id number] Jarrod Bunn PA-C [facility] [address] [place] [address] 07/11/2017 15:49:58 07/12/2017 10:19:40 Acute diarrhea 861567164 R19.7 Migraine without aura 56 207982 G43.673 [id number] [facility] [address] [place] [address] 09/14/2017 13:40:36 09/14/2017 14:43:16 Contraception care management 080672440 Z30.9 [id number] [facility] [address] [place] [address] 10/12/2017 15:02:42 10/12/2017 16:33:37 test positive 868478131 Z32.01 Normal 1665118 2 Z34.90 [id number] ERIN Pizano [facility] [address] [place] [address] 10/26/2017 14:57:32 10/26/2017 15:37:34 Routine care 682916787 Z34.91 [id number] ERIN Pizano 14 OB [address] [facility] [place] [address] 11/15/2017 16:21:47 11/17/2017 16:13:10 Routine care 804454038 Z34.91 Venereal d isease screening 486028441 Z11.3 Hyperemesi s gravidarum 28811770 O21.0 [id number] ERIN Pizano [place] 14 OB [address] [facility] [place] [address] 12/13/2017 17:06:07 12/14/2017 15:16:58 Normal 07075778 Z34.90 [id number] ERIN Pizano 14 OB [address] [facility] [place] [address] 01/10/2018 17:02:02 01/12/2018 13:12:02 Routine care 794867876 Z34.92 [id number] SUJATA Rivera [address] [place] [address] 01/31/2018 17:09:06 01/31/2018 18:05:17 Atopic dermatitis 88915566 L20.81 Seasonal a llergic rhinitis 163379064 J30.2 [id number] ERIN Pizano [address] [place] [address] 02/10/2018 16:51:33 02/13/2018 14:14:07 Routine care 620666716 Z34.92 [id number] ERIN Pizano [place] [address] [place] [place] [address] 02/16/2018 11:29:47 02/17/2018 14:17:44 Normal 01184654 Z34.90 Nausea and vomiting 1693 2000 R11.2 [id number] ERIN Pizano [place] [address] [place] [address] [place] [address] 03/08/2018 16:09:34 03/11/2018 11:38:24 Routine care 979621009 Z34.92 RhD negative 012840511 Z 01. [id number] BLANCA Rogers [address] [place] [address] 05/04/2018 16:56:37 05/04/2018 17:46:52 [id number] SUJATA Rivera [address] [place] [address] 04/27/2019 16:52:42 05/01/2019 12:40:14 Dysuria 29011428 R30.9 Otalgia 71476250 H92.02 Headache 44987365 R51 Acute urin trae tract infection 961610438 N30.00 [id number] Jarrod Bunn PA-C [facility] [address] [place] [address] 08/17/2019 14:04:14 08/20/2019 09:59:22 Myofascial pain syndrome of neck 297560181 M54.2 [id number] Jarrod Bunn PA-C [facility] [address] [place] [address] 04/09/2020 15:20:41 04/09/2020 16:53:06 Acute bilateral otitis media 044568699 H65.03 [id number] Jarrod Bunn PA-C [address] [address] 03/18/2021 15:08:26 03/18/2021 16:14:44 Cholelithiasis without obstruction 34675707 K80.20 Body mass index 30+ - obesity 803456317 Z68.41 [id number] Jarrod Bunn PA-C [facility] [address] [place] [address] 10/27/2023 14:38:09 10/28/2023 11:52:54 Sprain of right ankle 7717565813 5666559 S93.411A Overweight 234523226 E66 .3 [id number] Kathleen Durham MA [facility] [address] [place] [address] 03/12/2024 11:08:58 03/20/2024 12:13:41 Mixed anxiety and depressive disorder 097799295 F41.8 Chronic diarrhea 4491804 09 K52.9 Irritable bowel syndrome with diarrhea 728822201 K58.0 Overweight 896455254 E66 .3 Health Concerns Section Related Observation LastModified by Organization Detai ls LastModified Time None Recorded Concern Status LastModified by Organization Details LastModified Time None Recorded Advance Directives Directive None Recorded Payers Encounter Date Sequence Insurance Name Policy Number Policy Dudley Covered Member ID Dudley Member ID Guarantor Name 08/17/2019 1 [facility] PRIOR TO 10/16/2020 (MEDICAID REPLACEMENT - HMO) Connie Cathorall [id number] Connie Cathorall 04/09/2020 1 [facility] PRIOR TO 10/16/2020 (MEDICAID REPLACEMENT - HMO) Connie Cathorall [id number] Connie Cathorall 03/18/2021 1 [facility] ON OR AFTER 10/16/20 (MEDICAID REPLACEMENT - HMO) Connie Cathorall [id number] Connie Cathorall 10/27/2023 1 [facility] ON OR AFTER 10/16/20 (MEDICAID REPLACEMENT - HMO) Connie Hamilton [id number] Connie Cathorall 03/12/2024 1 [facility] ON OR AFTER 10/16/20 (MEDICAID REPLACEMENT - HMO) Connie Hamilton [id number] Connie Cathorall Notes Date Note Type Note Provider Name and Address Organization Details Recorded Time 08/17/2019 text/html fell and hit her neck on a high chair...went to ER...neck was not broken..muscle relaxers and prednisone Jarrod Bunn PA-C Attn: [address] [place], [address], [facility] 08/17/2019 14:12:52 04/09/2020 text/html says she has an infection in both ears...denies fever...does report sinus issues...has a long history of ear infections Jarrod Bunn PA-C Attn: [address] [place], [address], [facility] 04/09/2020 16:45:16 03/18/2021 text/html 20 y/o F present s for hospital follow up. Pt was seen at [facility] ER for upper back, epigastric pain that [...] PA-C Attn: [address]ing[address] , [place], [address], [facility] 03/18/2021 16:12:29 10/27/2023 text/html came back from a float trip...without issue...then sprained her ankle on the steps at home....ER said no break Jarrod Bunn PA-C Attn: Accounting[address] [facility], [place], [address], [facility] 10/27/2023 15:02:04 03/12/2024 text/html always diarrhea for a year..yellow..stom ach cramps fatigue...sleeping is only relief...seems rapid transit...OTC no help..emotional changes make condition worse... Kathleen Durham MA [facility], [place] - [facility] 03/12/2024 11:54:45 OBGyn Episode Ob Episode Information Episode Created Date Number of Fetuses Patient Bloodtype Patient rh Status Prepregnancy Weight lbs Domestic Partner Domestic Partner Phone Father Name Transportation Department Head Status 10/13/19 18 1 A Negative 206 Presley Schrum CLOSED Fetus Data First Name Last Name Admitted to NICU Weight (g) Sex Living Outcome Pediatric Complications Fetus ID Race Codes Race Delivery Type kalyan hamilton false 3572.03 7 F true Full Term [id number] White Vaginal Christ Calculation Initial Christ [...] Weight in lbs Pre/Post Dialysis Refused Weight 206.568880162200 BP Diastolic BP Location Tested BP Systolic BP Type 80 110 sitting Fetus Heart Rate Present Fetus Movement Comments Flowsheet Date 10/26/2017 Christian Score Blood Edema Fundus Height Fundus Units Glucose Ketones Leukocytes Nitrite Labor Signs Protein Cervic Dilation Cervic Effacement Cervic Station Type Weight in lbs Pre/Post Dialysis Refused Weight 208.33494292512 BP Diastolic BP Location Tested BP Systolic [...] Weight in lbs Pre/Post Dialysis Refused Weight 207.538431584242 BP Diastolic BP Location Tested BP Systolic [...] Weight in lbs Pre/Post Dialysis Refused Weight 210.617742845822 BP Diastolic BP Location Tested BP Systolic [...] Weight in lbs Pre/Post Dialysis Refused Weight 207.580788855788 BP Diastolic BP Location Tested BP Systolic [...] Weight in lbs Pre/Post Dialysis Refused Weight 211.402716934835 BP Diastolic BP Location Tested BP Systolic BP Type 86 126 sitting Fetus Heart Rate Present Fetus Movement Comments Flowsheet Date 02/10/2018 Christian Score Blood Edema Fundus Height Fundus Units Glucose Ketones Leukocytes Nitrite Labor Signs Protein Cervic Dilation Cervic Effacement Cervic Station none 24 cm none Type Weight in lbs Pre/Post Dialysis Refused Weight 216.650123266172 BP Diastolic BP Location Tested BP Systolic [...] Weight in lbs Pre/Post Dialysis Refused Weight 213.267924447373 BP Diastolic BP Location Tested BP Systolic [...] Weight in lbs Pre/Post Dialysis Refused Weight 220.363459656139 BP Diastolic BP Location Tested BP Systolic [...] Estim ated Date of Delivery false Thalassemia (Amharic, Burkinan, Mediterranean, Or Background): MCV < 80 false Neural Tube Defect (Meningomyelocele, Spina Bifi da, Or Anencephaly) false Congenital Heart Defect false Down Syndrome false Kian-Sachs (eg, Catholic, Cajun, Bruneian-Sudanese) f alse Katiana Disease false Sickle Cell Disease Or Trait () false Hemophilia Or Other Blood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
[2024-05-19 21:10] LABS: BEDSIDEPREGUCG Negative (Negative)
[2024-05-19 21:11] LABS: Basophils Percent Auto 0.2 % (0.2-1.2); Eosinophils Absolute Auto 0.1 K/mm3 (0-0.3); Eosinophils Percent Auto 0.6 % (0-4.4); Hematocrit 40.8 % (37.0-47.0); Hemoglobin 13.2 g/dL (12.0-15.0); Immature Granulocyte Absolute 0.07 K/mm3 (0.00-0.031); Immature Granulocyte Percent A 0.5 % (0-0.5); Lymphocytes Absolute Auto 2.25 K/mm3 (0.9-3.2); Lymphocytes Percent Auto 17.1 % (18.3-44.2); Mean Corpuscular HGB Conc 32.4 g/dl (32-36); Mean Corpuscular Hemoglobin 29.9 pg (26-34); Mean Corpuscular Volume 92.3 fl (80-100); Mean Platelet Volume 9.2 fl (7.4-10.4); Monocytes Absolute Auto 1.3 K/mm3 (0.1-0.6); Neutrophils Absolute Auto 9.4 K/mm3 (1.3-6.7); Neutrophils Percent Auto 71.6 % (45.5-73.1); Platelet Count Result 331 k/mm3 (150-375); Red Blood Count 4.42 M/mm3 (4.2-5.4); Red Cell Distribution Width 11.5 % (11.5-14.5); White Blood Count 13.2 K/mm3 (4.5-10.0)
[2024-05-19 21:26] LABS: Add Urine Microscopic? YES; Appearance Urine Cloudy (Clear); Bacteria Urine Rare /hpf; Bilirubin Urine 1+ (Negative); Blood Urine Negative (Negative); Color Urine Dark Yellow (Yellow); Glucose Urine UA Negative (Negative); Ketones Urine 3+ mg/dL (Negative); Leukocyte Esterase Ur 1+ LEU/UL (Negative); Mucus Urine Present /lpf; Need Manual Microscopic Reviewed; Nitrate Urine Negative (Negative); Protein Urine Trace mg/dL (Negative); Specific Grav Ur 1.025 (1.001-1.035); Squamous Epithelial Cell Urine Moderate /hpf (Few)
[2024-05-19] MEDS: SODIUM CHLORIDE 0.9% IV 1,000 ML 999 ML IV CONT (21:52)
[2024-05-19] MEDS: ONDANSETRON INJ 4 MG/2 ML VIAL IV PUSH (21:52)
[2024-05-19] MEDS: HYDROmorphone HCL INJ (*CRX) 1 MG/ML SYR IV PUSH (21:52)
[2024-05-19 22:03] LABS: Alanine Aminotransferase 53 U/L (6-35); Albumin Level 4.1 g/dL (3.5-5.1); Alkaline Phosphatase 53 U/L (38-126); Anion Gap 9 mmol/L (4-12); Aspartate Amino Transferase 52 U/L (14-36); Bilirubin,Total 0.9 mg/dL (0.2-1.3); Blood Urea Nitrogen 6 mg/dL (7-17); Calcium 8.9 mg/dL (8.4-10.2); Carbon Dioxide 26 mmol/L (22-30); Chloride 103 mmol/L (98-107); Estimated CRCL calculation 135 ml/min; Estimated Glomerular Filt Rate > 60; Glucose 84 mg/dL (65-110); Lipase 59 U/L (23-300); Potassium 3.4 mmol/L (3.4-5.0); Sodium 138 mmol/L (137-145)
[2024-05-19 22:30] VITALS: O2SAT 97
[2024-05-19 22:35] VITALS: BP 129/74; O2SAT 99
--- NOTE | 2024-05-19 23:07 | ED_ITS ---
HPI - General Adult General Chief complaint: Abdominal Pain Stated complaint: abd pain, gall bladder removal yesterday Time Seen by Provider: 05/19/24 21:30 History of Present Illness HPI narrative: Patient 23-year-old female who presents emergency department with chief complaint of abdominal pain. Patient reports that she had her gallbladder removed yesterday and reports that she has been having pain since the procedure. Patient states today it hurts to even take a deep breath. Related Data Home Medications ?Medication ?Instructions ?Recorded ?Confirmed ?Last Taken ?Type escitalopram oxalate 10 mg tablet 10 mg PO DAILY 03/29/24 05/18/24 05/17/24 History Allergies Allergy/AdvReac Type Severity Reaction Status Date / Time No Known Allergies Allergy Verified 05/19/24 19:55 Review of Systems 2 Review of Systems: A 10 system review of systems was completed on the patient and is negative except for what is stated in the HPI. Nursing and ancillary documentation was reviewed. PMFSH Past Medical History Medical History Generalized headaches Depression Anxiety Allergies GERD (gastroesophageal reflux disease) Surgical History Surgical History History of tonsillectomy and adenoidectomy Family History Family History Grandparent Cancer Heart disease Hypertension Mother Depression Hypertension Sibling Depression Hypertension Other No significant family history Social History Social History Smoking status: Never smoker Substance use: never Do You Feel Safe in your Home?: Yes Lack of Transportation: No Lack of Food: Often True Current Housing: Decline to Answer Concerned About Future Housing: No Difficulty Paying Gas/Electric Bills: Decline to Answer Difficulty Paying for Meds: No Currently Unemployed: YES Education: High School Diploma/GED Difficulty w/ Childcare or Family Care: No Living arrangements: with family Gender identity (if verbalized by the patient): Female Spiritual care concerns: No Exam 2 Narrative: GENERAL: Well-appearing, well-nourished, and in no acute distress. HEAD: Normocephalic, atraumatic. EYES: PERRLA and EOMI. ENT: Nares clear, no rhinorrhea or epistaxis. Mucous membranes moist. NECK: Supple. CHEST: Clear to auscultation. No respiratory distress. HEART: Regular rate and rhythm. No murmur heard. Normal peripheral pulses. ABDOMEN: Soft, nontender, nondistended, normal active bowel sounds. EXTREMITIES: Normal range of motion. No edema. SKIN: Warm, dry, no rash. NEURO: No focal deficits. Alert and oriented x3. PSYCH: Normal mood and affect. Course Vital Signs Vital signs: Vital Signs Temperature 37.1 C 05/19/24 19:56 Pulse Rate 86 05/19/24 19:56 Respiratory Rate 24 H 05/19/24 19:56 Blood Pressure 146/107 H 05/19/24 19:56 Pulse Oximetry 100 05/19/24 19:56 Oxygen Delivery Room Air 05/19/24 19:56 Temperature 37.1 C 05/19/24 19:56 Pulse Rate 86 05/19/24 19:56 Respiratory Rate 24 H 05/19/24 19:56 Blood Pressure 129/74 05/19/24 22:35 Pulse Oximetry 99 05/19/24 22:35 Oxygen Delivery Room Air 05/19/24 19:56 Medical Decision Making MDM Narrative Medical decision making narrative: Differential diagnosis includes abdominal pain post procedure, bile leak, pancreatitis Laboratory studies were obtained on the patient showed a white count 13.2 Urinalysis showed 6-10 rbc's and 11-[address] scan showed postsurgical changes Vital Signs Vital Signs: Vital Signs Temperature 37.1 C 05/19/24 19:56 Pulse Rate 86 05/19/24 19:56 Respiratory Rate 24 H 05/19/24 19:56 Blood Pressure 146/107 H 05/19/24 19:56 Pulse Oximetry 100 05/19/24 19:56 Oxygen Delivery Room Air 05/19/24 19:56 Temperature 37.1 C 05/19/24 19:56 Pulse Rate 86 05/19/24 19:56 Respiratory Rate 24 H 05/19/24 19:56 Blood Pressure 129/74 05/19/24 22:35 Pulse Oximetry 99 05/19/24 22:35 Oxygen Delivery Room Air 05/19/24 19:56 Lab Data 05/19/24 21:02 05/19/24 21:47 Labs: Lab Results 02/05/1205/19/24 05/19/24 Range/Units 21:02 21:08 21:47 WBC 13.2 H (4.5-10.0) K/mm3 RBC 4.42 (4.2-5.4) M/mm3 Hgb 13.2 (12.0-15.0) g/dL Hct 40.8 (37.0-47.0) % MCV 92.3 (80-100) fl MCH 29.9 (26-34) pg MCHC 32.4 (32-36) g/dl RDW 11.5 (11.5-14.5) % Plt Count 331 (150-375) k/mm3 MPV 9.2 (7.4-10.4) fl Immature Gran % (Auto) 0.5 (0-0.5) % Neut % (Auto) 71.6 (45.5-73.1) % Lymph % (Auto) 17.1 L (18.3-44.2) % [place] % (Auto) 10.0 H (2.6-8.5) % Eos % (Auto) 0.6 (0-4.4) % Baso % (Auto) 0.2 (0.2-1.2) % Lymph # (Auto) 2.25 (0.9-3.2) K/mm3 [place] # (Auto) 1.3 H (0.1-0.6) K/mm3 Eos # (Auto) 0.1 (0-0.3) K/mm3 Baso # (Auto) 0.0 (0.0-0.1) K/mm3 Abs Immat Gran (auto) 0.07 H (0.00-0.031) K/mm3 Absolute Neuts (auto) 9.4 H (1.3-6.7) K/mm3 Absolute Nucleated RBC 0.000 (0.0-0.012) K/mm3 Nucleated RBC % 0.0 (0.0-0.2) % Sodium 138 (137-145) mmol/L Potassium 3.4 (3.4-5.0) mmol/L Chloride 103 (98-107) mmol/L Carbon Dioxide 26 (22-30) mmol/L Anion Gap 9 (4-12) mmol/L BUN 6 L (7-17) mg/dL Creatinine 0.65 L (0.7-1.0) mg/dL Estim Creat Clear Calc 135 ml/min Estimated GFR > 60 (59 - ) Glucose 84 (65-110) mg/dL Calcium 8.9 (8.4-10.2) mg/dL Total Bilirubin 0.9 (0.2-1.3) mg/dL AST 52 H (14-36) U/L ALT 53 H (6-35) U/L Alkaline Phosphatase 53 (38-126) U/L Total Protein 7.0 (6.3-8.2) g/dL Albumin 4.1 (3.5-5.1) g/dL Lipase 59 (23-300) U/L Urine Color Dark yellow (Yellow) Urine Appearance Cloudy H (Clear) Urine pH 6.0 (5.0-9.0) Ur Specific [place] 1.025 (1.001-1.035) Urine Protein Trace (Negative) mg/dL Urine Glucose (UA) Negative (Negative) mg/dL Urine Ketones 3+ H (Negative) mg/dL Ur Blood (Man) Negative (Negative) Urine Nitrate Negative (Negative) Urine Bilirubin 1+ H (Negative) Urine Urobilinogen 1.0 (<2.0) mg/dL Add Ur Microanalysis Reviewed Leukocyte Esterase Rfl 1+ H (Negative) ALEXX/UL Urine RBC 6-10 H (0-2) /hpf Urine WBC 11-20 H (0-3) /hpf Ur Squamous Epith Cells Moderate (Few) /hpf Urine Bacteria Rare /hpf Urine Casts 3-5 Urine Mucus Present /lpf POC Urine HCG, Qual Negative (Negative) Discharge Plan Discharge Clinical Impression: Abdominal pain, Acute postoperative pain Patient Disposition: Home, Self-Care Condition: Stable Instructions: Antibiotic Form, Abdominal Pain (ED) Patient Language: Turkmen Prescriptions: No Action escitalopram oxalate 10 mg tablet 10 mg PO DAILY pantoprazole 40 mg tablet,delayed release (DR/EC) 40 mg PO QAM Qty: 30 3RF dicyclomine 10 mg capsule 10 mg PO TID Qty: 90 3RF oxycodone 5 mg tablet 5 mg PO Q6H PRN (Reason: pain) Qty: 15 0RF Follow-up/Referrals: Oni,MELISA Singleton [Primary Care Provider] - Time of Disposition: 01:18
== END 2024-05-20 01:31 | disposition home or self-care (01) ==
PROVIDERS: Emergency Provider Emergency Medicine; PCP Physician Assistant
DX: R10.9 Unspecified abdominal pain (principal); G89.18 Other acute postprocedural pain; F41.8 Other specified anxiety disorders; K21.9 Gastro-esophageal reflux disease without esophagitis
CPT/HCPCS: 36415; 74177; 80053; 81001; 81025; 83690; 85025; 96361; 96374; 96375; 99284; J1171; J2405; J7030; Q9967

== ENCOUNTER 2024-11-06 14:16 | Outpatient (CLI) | payer OTHER, SELFPAY ==
--- NOTE | ~2024-11-06 | US_ITS ---
EXAMINATION: US soft tissue head and neck DATE: 11/06/2024 14:44 INDICATION: Localized enlarged lymph node with intermittent left neck pain and swelling TECHNIQUE: Multiple grayscale and Doppler ultrasound images of the region of concern at the left neck were obtained. COMPARISON: None FINDINGS: Normal-appearing left submandibular gland measures 4.2 x 1.1 x 4.3 cm. 1 cm left submandibular gland is a mildly enlarged left submandibular lymph node which measures 1.5 x 1.2 x 1.1 cm with eccentric e chogenic fatty hilum. The left parotid gland also appears normal measuring 3.9 x 2.8 x 1.5 cm. There are a few normal-sized left jugular chain lymph nodes, the largest with fatty hilum and maximal short axis measurement of 7 mm. Visualized portion of the left thyroid lobe and isthmus are normal IMPRESSION: 1. Mildly enlarged left submandibular lymph node measuring 1.1 cm maximal short axis diameter. Given patient age and history of intermittent pain and swelling this most likely reactive. Malignancy would be unlikely given patient age and would consider clinical follow-up with repeat imaging should there be increase in size on physical exam. Ultrasound guided biopsy could be performed for definitive det ermination depending on level of clinical concern.. Reviewed, dictated and finalized at location A. IMPRESSION: 1. Mildly enlarged left submandibular lymph node measuring 1.1 cm maximal short axis diameter. Given patient age and history of intermittent pain and swelling this most likely reactive. Malignancy would be unlikely given patient age and would consider clinical follow-up with repeat imaging should there be increase in size on physical exam. Ultrasound guided biopsy could be performed for defin itive determination depending on level of clinical concern..
--- OUTSIDE RECORDS SUMMARY | 2024-11-06 14:22 | XMS_ITS | Data Portability ---
Author Organization [facility] VIRGIL Sanchez [facility] Address [address] [facility] [place] [address] Care Team Providers Care Wire Mesh Knitter Name Role Phone JARROD BUNN Primary Care Provider [phone] JAKE HENRIQUEZ Improvement Intern Unavailable Assessment No assessment recorded. Plan of Treatment Reminders Order Date Submit Date Provider Last Modified By Organization Details Last Modified Time Details Appointments None recorded. Lab CBC 2023 [facility], [address] [place] [address], [address], [place], [address], 4 06:18:36 CMP, serum or plasma 2023 [facility], [address] [place] [address], [address], [place], [address], 4 06:18:34 lipid panel, serum 2023 [facility], [address] [place] [address], [address], [place], [address], 4 06:18:32 TSH + free T4, serum 2023 [facility], [address] [place] [address], [address], [place], [address], 4 13:13:58 HbA1c (hemoglob in A1c), blood 2023 024 [facility] In-Office Order, Internal Use Only DO Not Attach Compendium DO Not Attach Compendium, Do Not Delete/merge, [id number] 4 11:54:06 Referral gastroent erologist referral 2023 024 [facility], [address], [id number], [place], [address], 4 18:17:32 gastroent erologist referral 2020 021 [email or web address] Not available 13:49:57 Procedures None recorded. Surgeries None recorded. Imaging US, neck, soft tissue - stat please 2024 [facility], [address] [place], [address], 5 14:35:21 Medication Orders clindamyc in HCl 300 mg capsule 2024 025 [facility] [place], [address], 5 14:19:38 Lomotil 2.5 mg-0.025 mg tablet 2023 024 [facility], [address] [place], [address], 5 13:43:20 escitalop deven 10 mg tablet 2023 024 [facility], [address] [place], [address], 4 11:34:19 amoxicill in 875 mg tablet 2019 020 [facility], [address] [place] [address], [address], 4 14:45:09 Patient TargetsNo targets recorded. Patient Instructions Encounter Date Encounter Id Patient Instructions Last Modified By Organization Details Last Modified Time 03/18/2021 [id number] body mass index: care instructions [email or web address] Not available 03/18/2021 16:07:08 learning about healthy weight jnanney Not available 03/18/2021 16:07:07 10/27/2023 [id number] A healthy lifestyle: care instructions [email or web address] Not available 10/27/2023 15:00:25 03/12/2024 [id number] A healthy lifestyle: care instructions jnanney Not available 03/12/2024 11:37:31 11/02/2024 [id number] A healthy lifestyle: care instructions jnanney Not available 11/02/2024 14:19:33 Reason for Referral Field Instructor Referral for Cholelithiasis without obstruction Referring Physician: Jarrod Bunn [facility], Encounter Date: 03/18/2021 Field Instructor Referral for Chronic diarrhea Referring Physician: Jarrod Bunn [facility], Encounter Date: 03/12/2024 Results Created Date Observation Date Name Description Value Unit Range Abnormal Flag Note LastModifiedBy Organization Detail LastModifiedTime 03/12/2003/13/2024 LIPID PANEL cholesterol, total 158 mg/dL 100-19 9 Not Available [facility] [id number] [place], [address], 03/13/2024 06:18:32 03/12/20 24 03/13/2024 LIPID PANEL triglyceride s 95 mg/dL 0-149 Not Available [facility] [id number] [place], [address], 03/13/2024 06:18:32 03/12/20 24 03/13/2024 LIPID PANEL HDL cholesterol 33 mg/dL 40-999 below low normal Not Available [facility] [address] [place], [address], 03/13/2024 06:18:32 03/12/20 24 03/13/2024 LIPID PANEL VLDL cholesterol sri 19 mg/dL 5-40 Not Available [facility] [address] [place], [address], 03/13/2024 06:18:32 03/12/20 24 03/13/2024 LIPID PANEL LDL chol calc (nih) 119 mg/dL 0-99 above high normal Not Available [address], [address], 03/13/2024 06:18:32 03/12/20 24 03/13/2024 COMP. METAB OLIC PANEL (14) glucose 76 mg/dL 70-99 Not Available [address], [address], 03/13/2024 06:18:34 03/12/20 24 03/13/2024 COMP. METAB OLIC PANEL (14) BUN 10 mg/dL 6-20 Not Available [address], [address], 03/13/2024 06:18:34 03/12/20 24 03/13/2024 COMP. METAB OLIC PANEL (14) creatinine 0.81 mg/dL 0.76-1 .27 Not Available [address], [address], 03/13/2024 06:18:34 03/12/20 24 03/13/2024 COMP. METAB OLIC PANEL (14) eGFR 103 >=60 Units for eGFR value s are mL/mi n/1.7 3 The eGFR Calcu latio n has not been valid ated for patie nts under the age of 18. If test resul ts are displ ayed for a patie nt under the age of 18, disre wm that value . Not Available [address], [address], 03/13/2024 06:18:34 03/12/20 24 03/13/2024 COMP. METAB OLIC PANEL (14) BUN/creatini ne ratio 12 9-23 Not Available [facility] [address], [address], 03/13/2024 06:18:34 03/12/2003/13/2024 COMP. METAB OLIC PANEL (14) sodium 141 mmol/ L 134-14 4 Not Available [address], [address], 03/13/2024 06:18:34 03/12/20 24 03/13/2024 COMP. METAB OLIC PANEL (14) potassium 3.9 mmol/ L 3.5-5. 2 Not Available [address], [address], 03/13/2024 06:18:34 03/12/2003/13/2024 COMP. METAB OLIC PANEL (14) chloride 106 mmol/ L 96-106 Not Available [address], [address], 03/13/2024 06:18:34 03/12/20 24 03/13/2024 COMP. METAB OLIC PANEL (14) carbon dioxide, total 24 mmol/ L 20-29 Not Available [address], [address], 03/13/2024 06:18:34 03/12/2003/13/2024 COMP. METAB OLIC PANEL (14) calcium 9.5 mg/dL 8.7-10 .2 Not Available [address], [address], 03/13/2024 06:18:34 03/12/2003/13/2024 COMP. METAB OLIC PANEL (14) protein, total 7.5 g/dL 6.0-8. 5 Not Available [address], [address], 03/13/2024 06:18:34 03/12/20 24 03/13/2024 COMP. METAB OLIC PANEL (14) albumin 4.5 g/dL 4.0-5. 0 Not Available [address], [address], 03/13/2024 06:18:34 03/12/20 24 03/13/2024 COMP. METAB OLIC PANEL (14) globulin, total 3.0 g/dL 1.5-4. 5 Not Available [address], [address], 03/13/2024 06:18:34 03/12/2003/13/2024 COMP. METAB OLIC PANEL (14) A/G ratio 1.0 1.2-2. 2 below low normal Not Available [address], [address], 03/13/2024 06:18:34 03/12/20 24 03/13/2024 COMP. METAB OLIC PANEL (14) bilirubin, total 0.6 mg/dL 0.0-1. 2 Not Available [address], [address], 03/13/2024 06:18:34 03/12/20 24 03/13/2024 COMP. METAB OLIC PANEL (14) alkaline phosphatase 53 IU/L 44-121 Not Available [address], [address], 03/13/2024 06:18:34 03/12/20 24 03/13/2024 COMP. METAB OLIC PANEL (14) AST (SGOT) 28 IU/L 0-40 Not Available [address], [address], 03/13/2024 06:18:34 03/12/20 24 03/13/2024 COMP. METAB OLIC PANEL (14) ALT (SGPT) 33 IU/L 0-32 above high normal Not Available [facility] & [address], [address], 03/13/2024 06:18:34 03/12/20 24 03/13/2024 CARDI OVASC ULAR REPOR T interpretati on Note Suppl ement al repor t is avail able. Not Available [address], [address], 03/13/2024 06:18:35 03/12/2003/13/2024 CARDI OVASC ULAR REPOR T pdf . Not Available [address], [address], 03/13/2024 06:18:35 03/12/20 24 03/12/2024 CBC, PLATE LET, NO DIFFE RENTI AL WBC 8.0 x10e3 /uL 3.4-10 .8 Eff ectiv e Decem kash 2023 profi kalin [id number] 5 WBC will be made* * non-o rdera ble as a stand -kelsie e order code. Not Available [address], [address], 03/13/2024 06:18:35 03/12/20 24 03/12/2024 CBC, PLATE LET, NO DIFFE RENTI AL RBC 4.35 x10e6 /uL 3.77-5 .28 Not Available [address], [address], 03/13/2024 06:18:35 03/12/20 24 03/12/2024 CBC, PLATE LET, NO DIFFE RENTI AL hemoglobin 13.2 g/dL 11.1-1 5.9 Not Available [address], [address], 03/13/2024 06:18:35 03/12/20 24 03/12/2024 CBC, PLATE LET, NO DIFFE RENTI AL hematocrit 40.0 % 34.0-4 6.6 Not Available [address], [address], 03/13/2024 06:18:35 03/12/2003/12/2024 CBC, PLATE LET, NO DIFFE RENTI AL MCV 92 fL 79-97 Not Available [address], [address], 03/13/2024 06:18:35 03/12/2003/12/2024 CBC, PLATE LET, NO DIFFE RENTI AL MCH 30.3 pg 26.6-3 3.0 Not Available [address], [address], 03/13/2024 06:18:35 03/12/2003/12/2024 CBC, PLATE LET, NO DIFFE RENTI AL MCHC 33.0 g/dL 31.5-3 5.7 Not Available [address], [address], 03/13/2024 06:18:35 03/12/2003/12/2024 CBC, PLATE LET, NO DIFFE RENTI AL RDW 11.2 % 11.5-1 4.5 below low normal Not Available [address], [address], 03/13/2024 06:18:35 03/12/2003/12/2024 CBC, PLATE LET, NO DIFFE RENTI AL platelets 347 x10e3 /uL 150-45 0 Mean Plate let Volum e 9.9 fL 8.9-1 2.7 N Not Available [address], [address], 03/13/2024 06:18:35 03/12/2003/12/2024 CBC, PLATE LET, NO DIFFE BRITTANY AL NRBC 0 % 0-0 Not Available [facility] [address] [facility], [place], [address], 03/13/2024 06:18:35 03/12/2003/13/2024 TSH+F REE T4 TSH 0.789 uIU/m L 0.450- 4.500 Not Available [facility] ([facility]) [address] [facility], [place], [address], 03/13/2024 13:13:57 03/12/2003/13/2024 TSH+F REE T4 T4,free(dire ct) 1.38 NG/dL 0.82-1 .77 Not Available [facility] ([facility]) [address] [facility], [place], [address], 03/13/2024 13:13:57 03/12/2003/12/2024 HbA1c (hemo globi n A1c), blood HbA1c 5.1 Not Available In-Office Order Internal Use Only DO Not Attach Compendium DO Not Attach Compendium, Do Not Delete/merge, [id number] 03/12/2024 11:37:51 07/26/19 22 07/24/2021 XR, thora colum bar spine No observ [facility]ion [facility]. [facility] [address], [place], [address], 07/27/2021 09:18:41 08/11/19 22 08/09/2021 XR, chest No observ ation record ed. [facility] [address], [place], [address], 08/10/2021 13:41:52 08/11/19 22 08/09/2021 XR, pelvi s, 1 or 2 view No observ ation record ed. [facility] [address], [place], [address], 08/10/2021 13:39:04 08/11/19 22 08/09/2021 CT, head, w/o contr ast No observ ation record ed. [facility] ([facility]) [address] [facility], [place], [address], 08/10/2021 13:38:35 08/11/19 22 08/09/2021 CT, cervi sri spine , w/o contr ast No observ ation record ed. [facility] [address] [facility], [place], [address], 08/10/2021 13:38:18 08/25/19 22 08/21/2021 CT, lumba r spine , w/o contr ast No observ ation record ed. jnanney Not Available 2021 10:36:29 04/25/19 25 04/25/2024 NM, hepat obili trae scan No observ ation record ed. [address], [place], [address], 04/25/2024 16:38:47 05/16/19 25 05/16/2024 US, abdom en, limit ed No observ ation record ed. [address], [place], [address], 05/16/2024 12:07:23 05/20/1905/19/2024 CT, abdom en + pelvi s, w/ contr ast No observ ation record ed. [address], [place], [address], 05/21/2024 09:07:31 08/16/19 25 08/14/2024 CT, maxil lofac ial, w/o contr ast No observ ation record ed. [facility] [address], [place], [address], 08/15/2024 10:07:05 Result Notes None recorded. Problems Name Problem SNOMED Code Status Onset Date Resolution Date Notes Provider Name and Address Organization Details Recorded Time Knee pain Active BLANCA Miguel, [facility] 15:14:21 Foot eczema 674375312 Active BLANCA Miguel, [facility] 15:14:21 Spasm of back muscles 380547858 Active BLANCA Miguel, [facility] 15:14:21 92397137 Completed 201706/12/2018 Oralia Sprague null, [facility] 9 17:19:38 Problem Notes None recorded. Procedures Surgical History Date Name Laterality Status Provider Name and Address Organization Details Recorded Time tonsilectom y/adenoids completed Kathleen Durham MA [facility] 03/18/2021 15:17:19 Imaging Results None recorded. Procedure Notes None recorded. Medical Equipment None [...] completed Not Available Not Available Not Available clindamycin HCl 300 mg capsule Take 1 capsule every 6 hours by oral route for 10 days. 2024 active Not Available Not Available Not Avai lable hydrocodone 5 mg-acetamin ophen 325 mg tablet [...] day by oral route for 3 days. 11/02 completed Not Available Not Available Not Available metronidazo le 500 mg tablet 04/09 completed Not Available Not Available Not Available Space Chamber USE DIRECTED 10/26 completed Not Available Not Available Not Available ciprofloxac in 500 mg tablet TAKE 1 TABLET BY MOUTH TWICE DAILY FOR 10 DAYS 11/02 completed Not Available Not Available Not Available tramadol 50 mg tablet TAKE 1 TABLET BY MOUTH EVERY 6 HOURS NEEDED FOR PAIN 10/26 completed Not Available Not Available Not Available Depo-Medrol 80 mg/mL suspension for injection Take 1 mL by injection route. 2014 active Not Available Not Available Not Avai lable pantoprazol e 20 mg tablet,gianna yed release 11/02 completed Not Available Not Available Not Available Imitrex [...] Available Not Available dicyclomine 20 mg tablet 11/02 completed Not Available Not Available Not Available cephalexin 500 mg capsule Take 1 capsule 3 times a day by oral route for 10 days. 04/09 completed Not Available Not Available Not Available pantoprazol e 40 mg tablet,gianna yed release TAKE 1 TABLET BY MOUTH IN THE MORNING active Not Available Not Available No t Available diclofenac sodium 75 mg tablet,gianna yed [...] Not Available Not Available Not Available dicyclomine 10 mg capsule TAKE 1 CAPSULE BY MOUTH THREE TIMES DAILY active Not Available Not Available No t Available naproxen 500 mg tablet TAKE 1 TABLET BY MOUTH EVERY 12 HOURS FOR 5 DAYS NEEDED FOR PAIN 10/26 completed Not Available Not Available Not Available metoclopram silvia 10 mg tablet 04/09 completed Not Available Not Available Not Available oxycodone 5 mg tablet TAKE 1 TABLET BY MOUTH EVERY 6 HOURS NEEDED FOR PAIN active Not Available Not Available No t Available escitalopra m 10 mg tablet Take [...] completed Not Available Not Available Not Available Nuckolls-Linyah 0.25 mg-0.035 mg tablet Take 1 tablet every day [...] Available Not Available Vitals Date Recorded Body height Body mass index (BMI) Body weight Heart rate Oxygen saturation Oxygen saturation in Arterial blood by Pulse oximetry Systolic And Diastolic Provider Name and Address Organization Details Last Updated DateTime 4 167.64 cm 38.7 kg/m2 409510. 17 g 68 /min 98 % 98 % 120/80 mm[Hg] Kayleigh Montana MA [place] [facility] 4 14:48:12 Date Recorded Body height Body mass index (BMI) Body weight Oxygen saturation Oxygen saturation in Arterial blood by Pulse oximetry Heart rate Respiratory rate Systolic And Diastolic Provider Name and Address Organization Details Last Updated DateTime 5 167.64 cm 33.9 kg/m2 61703.4 g 98 % 98 % 67 /min 16 /min 121/79 mm[Hg] Naomy Sainz MA [facility] 5 13:46:21 Date Recorded Body height Body mass index (BMI) Body weight Oxygen saturation Oxygen saturation in Arterial blood by Pulse oximetry Heart rate Systolic And Diastolic Provider Name and Address Organization Details Last Updated DateTime 4 167.64 cm 37.3 kg/m2 340389. 84 g 97 % 97 % 65 /min 126/84 mm[Hg] Kathleen Durham MA [facility] 4 11:20:33 Date Recorded Body temperature Oxygen saturation Oxygen saturation in Arterial blood by Pulse oximetry Heart rate Body weight Body height Body mass index (BMI) Systolic And Diastolic Provider Name and Address Organization Details Last Updated DateTime 1 97.1 [degF] 99 % 99 % 98 /min 819054. 79 g 167.64 cm 42.4 kg/m2 120/72 mm[Hg] Kathleen Durham MA [facility] 1 15:19:54 Social History Question Answer Notes LastModified by Organizat ion Details LastModified Time Tobacco Smoking Status Former Smoker Kayleigh Montana MA [facility] 10/27/2023 14:46:11 What Is Your Level Of Caffeine Consumption? Occasional Information not available 11/02/2024 In The 14 Days Before Symptom Onset, [...] You Used? None Information not available 04/09/2020 Marital Status Single Informati on not available 04/09/2020 What Was The Date Of Your Most Recent Tobacco Screening? 11/02/2024 Information not available 11/02/2024 What Is Your Relationship Status? Single Information not available 03/18/2021 Do You Have Smoke And Carbon Monoxide Detectors In Your Home? Yes Information not available 03/18/2021 Are You Passively Exposed To Smoke? Yes Information no t available 03/18/2021 How Much Tobacco Do You Smoke? No Information not available 03/12/2024 General Stress Level High Information not available 04/09/2020 Has Tobacco Cessation Counseling Been Provided? Yes Information not available 03/18/2021 On What Date Was Tobacco Cessation Counseling Provided? 11/02/2024 Information not available 11/02/2024 Sex: Unknown Functional Status Question Answer Note LastModified by Organizat ion Details LastModified Time Do you use any illicit or recreational drugs? No Information not available 03/18/2021 Do you or have you ever used any other forms of tobacco or nicotine? No Information not available 03/18/2021 What is your level of alcohol consumption? None Information not available 04/09/2020 Do you or have you ever used smokeless tobacco? Never used smokeless tobacco Information not available 04/09/2020 What is your occupation? unemployed Information not available 04/09/2020 Do you or have you ever used e-cigarettes or vape? Current user of electronic cigarettes [email or web address] Information not available 10/27/2023 Mental Status Question Answer Note LastModified by Organization D etails LastModified Time Do you feel stressed (tense, restless, nervous, or anxious, or unable to sleep at night)? [id number] Information not available 03/18/2021 Family History Nothing Reported. Medical History Condition Response Coronary Artery Disease N Other N High Blood Pressure N Atrial Fibrillation N Kidney or Bladder Problems N Thyroid Problems N GI Problems N Depression N COPD N Blood Clots N Skin Problems N Anemia N Heart Attack ([place]) N Anxiety Disorder N Diabetes N Muscle, Joint, or Bone Problems N Seizures/Epilepsy N Acid Reflux (GERD) N Cancer N Stroke N Asthma N Allergies N High Cholesterol N Hepatitis N Liver Disease N Headaches N Osteoporosis N Heart Failure N Gynecological History Statement/Question Response Age at Menarche 11 Current Control Method None Date of LMP 10/10/2024 LMP Definite On BCP's at Conception? N Obstetrics History GPAL:G 1 P 1 0 0 1 Type Value Multiple Births 0 Full Term 1 Induced 0 Spontaneous 0 Premature 0 Living 1 Ectopics 0 Total 1 Immunizations Vaccine Type Date Status Note Provider Nam e and Address Organization Details Recorded Time Meningococcal MCV4O 5 completed Not Available [facility] 02:43:03 Past Encounters Encounter ID Performer Location Encounter Start Date Encounter Closed Date Diagnosis/Indication Diagnosis SNOMED-CT Code Diagnosis ICD10 Code Diagnosis Note [id number] Prince Ramsey MD [facility] [address] [place] [address] 08/26/2014 16:34:21 08/26/2014 17:09:29 Knee pain 83335313 [id number] Prince Ramsey MD [facility] [address] [place] [address] 12/20/2014 16:45:42 12/24/2014 09:06:05 Well child 719079544 [id number] Prince Ramsey MD [facility] [address] [place] [address] 02/26/2015 15:11:22 02/26/2015 15:39:39 Foot eczema 236128434 L30.9 [id number] Jarrod Bunn PA-C [facility] [address] [place] [address] 06/27/2015 16:20:31 06/30/2015 09:15:18 Spasm of back muscles 721746055 M62.873 [id number] Jarrod Bunn PA-C [facility] [address] [place] [address] 02/03/2016 18:55:17 02/04/2016 09:27:11 Well child 272959439 Z00.015 [id number] ERIN Pizano [facility] [address] [place] [address] 04/27/2017 15:06:38 04/27/2017 17:06:29 Breasts asymmetrical 295469255 N64.59 Upper resp iratory infection 32150922 J06.9 [id number] Prince Ramsey MD [facility] [address] [place] [address] 07/11/2017 15:49:58 07/12/2017 10:19:40 Acute diarrhea 642919779 R19.7 Migraine without aura 56 180537 G43.627 [id number] [facility] [address] [place] [address] 09/14/2017 13:40:36 09/14/2017 14:43:16 Contraception care management 118775393 Z30.9 [id number] ERIN Pizano [facility] [address] [place] [address] 10/12/2017 15:02:42 10/12/2017 16:33:37 test positive 707873361 Z32.01 Normal 0653217 2 Z34.90 [id number] ERIN Pizano [facility] [address] [place] [address] 10/26/2017 14:57:32 10/26/2017 15:37:34 Routine care 096251867 Z34.91 [id number] ERIN Pizano [address] [facility] [place] [address] 11/15/2017 16:21:47 11/17/2017 16:13:10 Routine care 437854819 Z34.91 Venereal d isease screening 233617295 Z11.3 Hyperemesi s gravidarum 15315468 O21.0 [id number] ERIN Pizano 14 OB [address] [facility] [place] [address] 12/13/2017 17:06:07 12/14/2017 15:16:58 Normal 78405171 Z34.90 [id number] ERIN Pizano 14 OB [address] [facility] [place] [address] 01/10/2018 17:02:02 01/12/2018 13:12:02 Routine care 341694164 Z34.92 [id number] SUJATA Rivera [address] [place] [address] 01/31/2018 17:09:06 01/31/2018 18:05:17 Atopic dermatitis 10447582 L20.81 Seasonal a llergic rhinitis 652988732 J30.2 [id number] ERIN Pizano [place] [address] [facility] [place] [address] 02/10/2018 16:51:33 02/13/2018 14:14:07 Routine care 115013095 Z34.92 [id number] ERIN Pizano 14 OB [address] [facility] [place] [address] 02/16/2018 11:29:47 02/17/2018 14:17:44 Normal 19725027 Z34.90 Nausea and vomiting 1693 2000 R11.2 [id number] ERIN Pizano [place] 14 OB [address] [facility] [address] [place] [address] [place] [address], [place] [address] 03/08/2018 16:09:34 03/11/2018 11:38:24 Routine care 915430434 Z34.92 RhD negative 970581566 Z 01.83 [id number] SUJATA Rivera [address] [place] [address] 05/04/2018 16:56:37 05/04/2018 17:46:52 [id number] SUJATA Rivera [address] [place] [address] 04/27/2019 16:52:42 05/01/2019 12:40:14 Dysuria 24201411 R30.9 Otalgia 22819312 H92.02 Headache 57784622 R51 Acute urin trae tract infection 477928801 N30.00 [id number] SUJATA Rivera [address] [place] [address] 08/17/2019 14:04:14 08/20/2019 09:59:22 Myofascial pain syndrome of neck 770672641 M54.2 [id number] Prince Ramsey MD [facility] [address] [place] [address] 04/09/2020 15:20:41 04/09/2020 16:53:06 Acute bilateral otitis media 390484154 H65.03 [id number] Jarrod Bunn PA-C [facility] [address] [place] [address] 03/18/2021 15:08:26 03/18/2021 16:14:44 Cholelithiasis without obstruction 49939163 K80.20 Body mass index 30+ - obesity 589011342 Z68.41 [id number] Prince Ramsey MD [facility] [address] [place] [address] 10/27/2023 14:38:09 10/28/2023 11:52:54 Sprain of right ankle 1993928538 7127733 S93.411A Overweight 260034804 E66 .3 [id number] Prince Ramsey MD [facility] [address] [place] [address] 03/12/2024 11:08:58 03/20/2024 12:13:41 Mixed anxiety and depressive disorder 366126762 F41.8 Chronic diarrhea 3964589 09 K52.9 Irritable bowel syndrome with diarrhea 044837203 K58.0 Overweight 522509943 E66 .3 [id number] Prince Ramsey MD [facility] [address] [place] [address] 11/02/2024 13:24:51 11/05/2024 10:35:10 Submandibular lymphadenopathy 256049829 R59.0 Obese class I 0884887736 69481 E66.811 E66.3 Health Concerns Section Related Observation LastModified by Organization Detai ls LastModified Time None Recorded Concern Status LastModified by Organization Details LastModified Time None Recorded Advance Directives Directive None Recorded Payers Insurance Date Sequence Insurance Name Policy Number Policy Dudley Covered Member ID Dudley Member ID Guarantor Name 01/04/2024 1 [facility] (MEDICAID HMO) Connie Duong [id number] Connie Duong 01/04/2024 1 [facility] - DOS PRIOR TO 2020 (MEDICAID REPLACEMENT - HMO) Connie Cathorall [id number] Connie Cathorall 04/27/[address] [facility] [id number] Tori Calero Cathorall [id number] Connie Cathorall 01/04/2024 1 [facility] - DOS ON OR AFTER 20 (MEDICAID REPLACEMENT - HMO) Connie Cathorall [id number] Connie Cathorall 01/04/2024 1 [place] Connie Cathorall [id number] Connie Cathorall 01/04/2024 1 [place] [facility] Connie Cathorall [id number] Connie Cathorall 01/04/2024 1 [place] Connie Cathorall [id number] Connie Cathorall 11/02/2024 1 [facility] - DOS ON OR AFTER 20 (MEDICAID REPLACEMENT - HMO) Connie Hamilton [id number] Connie Cathorall Notes Date Note Type Note Provider Name and Address Organization Details Recorded Time 04/09/2020 text/html says she has an infection in both ears...denies fever...does report sinus issues...has a long history of ear infections Jarrod Bunn PA-C Attn: [address] [place], [address], [facility] [place] 04/09/2020 16:45:16 03/18/2021 text/html 20 y/o F present s for hospital follow up. Pt was seen at [facility]'s ER for upper back, epigastric [...] hrs. Jarrod Bunn PA-C Attn: Accounting[address] [facility], [place], [address], [facility] 03/18/2021 16:12:29 10/27/2023 text/html came back from a float trip...without issue...then sprained her ankle on the steps at home....ER said no break Jarrod Bunn PA-C Attn: [address]ing[address] , [place], [address], [facility] - [facility] 10/27/2023 15:02:04 03/12/2024 text/html always diarrhea for a year..yellow..stom ach cramps fatigue...sleeping is only relief...seems rapid transit...OTC no help..emotional changes make condition worse... Kathleen Durham MA [facility] [place] - [facility] 03/12/2024 11:54:45 11/02/2024 text/html left ear pain...was told it was infected then began to travel down neck..had amox that she started yesterday for a similar..hasnt helped yet Jarrod Bunn PA-C Attn: [address]ing[address] [facility], [place], [address], [facility] 11/02/2024 14:20:53 OBGyn Episode Ob Episode Information Episode Created Date Number of Fetuses Patient Bloodtype Patient rh Status Prepregnancy Weight lbs Domestic Partner Domestic Partner Phone Father Name Burlap Bag Sewer Status 10/13/19 18 1 A Negative 206 Presley Schrum CLOSED Fetus Data First Name Last Name Admitted to NICU Weight (g) Sex Living Outcome Pediatric Complications Fetus ID Race Codes Race Delivery Type kalyan hamilton false 3572.03 7 F true Full Term [id number] White Vaginal Christ Calculation Initial Christ Date Initial Exam Date Initial Exam Provider Initial Ultrasound Date Last Menstrual Period Date Ultra Sound Weeks [facility]estation [facility]/02/2018 [facility]2017 07/22/2017 9 Eighteen To Twenty Week Christ Update Ultra Sound Date Fundal Height At Umbil Quickening Date Ultra Sound Latest Weeks Gestation Final Christ Confirmed By Final Christ Confirmed Date Final Christ Date Ultra Sound Latest Days [facility] 11/07/2017 019 0 Pre- Flowsheet Flowsheet Date 10/12/2017 Christian Score Blood Edema Fundus Height Fundus Units Glucose Ketones Leukocytes Nitrite Labor Signs Protein Cervic Dilation Cervic Effacement Cervic Station Type Weight in lbs Pre/Post Dialysis Refused Weight 206.881584523899 BP Diastolic BP Location Tested BP Systolic BP Type 80 110 sitting Fetus Heart Rate Present Fetus Movement Comments Flowsheet Date 10/26/2017 Christian Score Blood Edema Fundus Height Fundus Units Glucose Ketones Leukocytes Nitrite Labor Signs Protein Cervic Dilation Cervic Effacement Cervic Station Type Weight in lbs Pre/Post Dialysis Refused Weight 208.48979103273 BP Diastolic BP Location Tested BP Systolic [...] Weight in lbs Pre/Post Dialysis Refused Weight 207.914983600987 BP Diastolic BP Location Tested BP Systolic [...] Weight in lbs Pre/Post Dialysis Refused Weight 210.540307274949 BP Diastolic BP Location Tested BP Systolic [...] Weight in lbs Pre/Post Dialysis Refused Weight 207.879502726634 BP Diastolic BP Location Tested BP Systolic [...] Weight in lbs Pre/Post Dialysis Refused Weight 211.536891635524 BP Diastolic BP Location Tested BP Systolic BP Type 86 126 sitting Fetus Heart Rate Present Fetus Movement Comments Flowsheet Date 02/10/2018 Crhistian Score Blood Edema Fundus Height Fundus Units Glucose Ketones Leukocytes Nitrite Labor Signs Protein Cervic Dilation Cervic Effacement Cervic Station none 24 cm none Type Weight in lbs Pre/Post Dialysis Refused Weight 216.598682656231 BP Diastolic BP Location Tested BP Systolic [...] Weight in lbs Pre/Post Dialysis Refused Weight 213.205092462975 BP Diastolic BP Location Tested BP Systolic BP Type 60 114 sitting Fetus Heart Rate Present A 148 Present Fetus Movement A Yes Comments Pt states she has had a coup le of issues with vomiting up mucous that is blood tinged. Denies thick hpil blood. States she feels like she has [...] Weight in lbs Pre/Post Dialysis Refused Weight 220.442270158418 BP Diastolic BP Location Tested BP Systolic [...] Estim ated Date of Delivery false Thalassemia (Faroese, Peruvian, Mediterranean, Or Background): MCV < 80 false Neural Tube Defect (Meningomyelocele, Spina Bifi da, Or Anencephaly) false Congenital Heart Defect false Down Syndrome false Kian-Sachs (eg, Yarsani, Cajun, Croatian-Draper) f alse Katiana Disease false Sickle Cell Disease Or Trait () false Hemophilia Or Other Blood Disorders false Muscular Dystrophy false Cystic Fibrosis false Larsen's Chorea false Mental Retardation/Autism false If Yes, [...] ed By 10/12/2017 [facility] 10/12/2017 Alcohol [facility] 10/12/2017 Intimate partner violence [facility] [place] 10/12/2017 Environmental/[facility] 10/12/2017 Screening for aneuploidy [facility] 10/12/2017 Nutrition counseling ; special diet; dietary precautions (mercury, listeriosis) [facility] 10/12/2017 Childbirth classes/hospital facilities [facility] 10/12/2017 HIV and other routine tests [facility] 10/12/2017 Risk factors identif ied by history [facility] 10/12/2017 Weight gain counseling [facility] 10/12/2017 Exercise [facility] 10/12/2017 Teratogens [facility] 10/12/2017 Use of any medicatio ns (including supplements, vitamins, herbs, or OTC drugs) [facility] 10/12/2017 [facility] 10/12/2017 Sexual [facility] 10/12/2017 Tobacco/smoking cess ation counseling (ask, advise, assess, assist, and arrange) [facility] 10/12/2017 Illicit/recreational drugs [facility] 10/12/2017 Dental care [facility] 10/12/2017 [facility] 10/12/2017 Seat belt use [facility] 10/12/2017 Indications for ultrasonography [facility] 10/12/2017 Avoidance of saunas or hot tubs [facility] 10/12/2017 Toxoplasmosis precautions (cats/raw meat) [facility] Second Trimester Discussed Date Discussion Item [...]
== END 2024-11-06 14:17 | disposition home or self-care (01) ==
PROVIDERS: PCP Physician Assistant; Visit Provider Physician Assistant
DX: R59.0 Localized enlarged lymph nodes (principal)
CPT/HCPCS: 76536